=== PATIENT | male | born 1960 | race Caucasian/White ===

== ENCOUNTER 2018-06-04 19:57 | Inpatient (IN) ==
[2018-06-04 21:27] LABS: Baso % (Auto) 0.4 % (0.0-2.0); Eos # (Auto) 0.1 th/mm3 (0.0-0.4); Eos % (Auto) 1.3 % (0.0-4.0); Hematocrit 46.6 % (39.0-51.0); Hemoglobin 16.2 gm/dL (13.0-17.0); Lymph % (Auto) 18.9 % (9.0-44.0); Mean Corpuscular HGB Conc 34.8 % (32.0-36.0); Mean Corpuscular Volume 89.1 fL (80.0-100.0); Mean Platelet Volume 9.1 fL (7.0-11.0); Mono # (Auto) 0.8 th/mm3 (0.0-0.9); Mono % (Auto) 7.8 % (0.0-8.0); Neut # (Auto) 7.7 th/mm3 (1.8-7.7); Neut % (Auto) 71.6 % (16.0-70.0); Platelet Count 212 th/mm3 (150-450); Red Blood Count 5.23 mil/mm3 (4.50-5.90); Red Cell Distribution Width 12.3 % (11.6-17.2); White Blood Count 10.8 th/mm3 (4.0-11.0)
--- NOTE | 2018-06-04 21:29 | XR ---
EXAM DATE: 06/04/2018 8:54 PM EDT AGE/SEX: 58 years / Male INDICATIONS: Shortness of breath with chest pain. CLINICAL DATA: This is the patient's initial encounter. Patient reports that signs and symptoms have been present for 1 day and indicates a pain score of 5/10. MEDICAL/SURGICAL HISTORY: None. None. COMPARISON: No prior exams available for comparison. FINDINGS: Frontal view of the chest demonstrates moderate elevation of the left hemidiaphragm, approximately 5 cm higher than the contralateral side. The lungs are clear. No infiltrates seen. The heart is normal in size. CONCLUSION: No infiltrates seen. Elevated left hemidiaphragm. Electronically signed by: Vijay Olmos MD 06/04/2018 9:28 PM EDT
--- NOTE | 2018-06-04 21:41 | ED ---
HPI General Chief complaint: Shortness of Breath/Dyspnea Stated complaint: breathing, chest pain Time Seen by Provider: 06/04/18 20:31 Source: patient Mode of arrival: ambulatory Limitations: no limitations History of Present Illness HPI narrative: The patient is a 58 year old male who presents to the [facility] emergency department with a history of reportedly feeling unwell for the last 3 weeks. He reports that he has had body cramping in various locations during that period of time. He reports that he is also noticed swelling in the left lower extremity. The patient reports that today he began to have chest pain in the center of his chest that is a pressure sensation at approximately 7 AM this morning. He reports that it is worse with exertion. He also reports having shortness of breath and diaphoresis. He denies having any radiation of pain. He denies having any prior history of coronary artery disease. He reports a prior history of hypertension that is untreated, hyperlipidemia, and being prediabetic. He has not seen a primary care physician since 2013. He denies any prior history of DVT or PE, however is a family history of coagulopathy and was diagnosed with factor V Leiden deficiency. The patient reports a long-standing history of shortness of breath for years which he attributes to being a bone marrow donor in 2011. His primary care physician is Dr. Lanza. He cannot recall if he has ever had a stress test. Patient has a remote history of smoking, quitting 10 years ago. The patient reports having a dry cough over the last few weeks. He denies having any known fevers. He reports that today he has had some diarrhea. He reports that he has had 3 episodes. He denies having any blood in his stool or black or tarry stools. On review of systems otherwise, he denies any neck pain, abdominal pain, urinary symptoms, or neurologic symptoms. Related Data Home Medications Medication Instructions Recorded Confirmed No Known Home Medications 06/04/18 06/04/18 Allergies Allergy/AdvReac Type Severity Reaction Status Date / Time amoxicillin AdvReac Abdominal Verified 06/04/18 20:12 Pain codeine AdvReac Vomiting Verified 06/04/18 20:12 Review of Systems ROS: all other systems reviewed are negative [facility] Medical History Medical History Factor 5 Leiden mutation, heterozygous (Acute) Hyperlipidemia (Acute) Knee arthropathy (Acute) Prediabetes (Acute) HTN (hypertension) (Acute) Social History Social History Substance History: No History of Abuse Second Hand Smoke Exposure: No Smoking Status: Former smoker Tobacco Type: Cigars Smoking End Date: quit 10 years ago. How Often Do You Have a Drink Containing Alcohol: 2 to 3 times a week Recent Travel in [facility] within the Last 8 Weeks: No Recent Out of Country Travel within the Last 8 Weeks: No Immunization History Tetanus Immunization: Unsure Hx Influenza Vaccine This Season: No Exam Const General: cooperative, well developed and acute distress (Conversational dyspnea noted, O2 saturation on room air is 89 sent.) mild Nutritional Appearance: well nourished Orientation: alert, awake and oriented x3 HENMT Head: normocephalic and atraumatic Nose: no nasal discharge and no epistaxis Mouth: moist mucous membranes Throat: posterior oropharynx normal and uvula midline Eyes Sclera: normal sclerae Pupils: PERRL Neck Neck: no meningeal signs, trachea midline and no JVD Resp Effort & Inspection: no use of accessory muscles Auscultation: clear to auscultation bilaterally Cardio Rate: tachycardic (Sinus tachycardia in the low 100s. No pulse deficits to the extremities on simultaneous auscultation and palpation of his radial artery.) Rhythm: regular rhythm Heart Sounds: no gallops, no murmurs and no rubs GI Inspection: non-distended Palpation: soft, no hepatosplenomegaly and nontender Auscultation: normal bowel sounds Back/Spine/Pelvis Back: no CVA tenderness Skin General: dry skin (warm) Neuro General: alert, awake, oriented x3 and other (Grossly nonfocal.) Speech: speech normal Motor: no movement abnormalities noted Extrem General: normal to inspection (2+ pulses in all 4 extremities.), no clubbing, no cyanosis and edema (Some swelling in the left calf is noted. The patient has left calf tenderness on palpation. No erythema or ecchymosis. The patient has full range of motion of the ankle with flexion and extension on the left.) Psych Mood: congruent mood Affect: normal affect Judgment: judgment good Course Reevaluation(s) Reevaluation #1: The patient continued to have dyspnea and was placed on 2 L nasal cannula O2 initially. This was bumped up to 4 L. The patient reported feeling improved. Consultations Consultation #1: The tool grinding technician was called regarding a stat echo. She agreed to come in to do this emergently. The patient's case including history, pertinent physical examination findings, and laboratory studies were discussed with Dr. Brian Nassar. It was agreed that he would read a stat 2D echo. Consultation #2: The patient's case including history, pertinent physical examination findings, and laboratory studies were discussed with Dr. Christopher. It was agreed that the patient would be admitted to the hide inspector and sorter's service. Initial Documented Vital Signs Temperature 99.8 F H 06/04/18 20:12 Pulse Rate 117 H 06/04/18 20:12 Respiratory Rate 23 06/04/18 20:12 Blood Pressure 169/94 H 06/04/18 20:12 Pulse Oximetry 92 L 06/04/18 20:12 Last Documented Vital Signs Temperature 98.3 F 06/05/18 04:00 Pulse Rate 96 H 06/05/18 06:00 Respiratory Rate 30 H 06/05/18 06:00 Blood Pressure 139/81 06/05/18 06:00 Pulse Oximetry 95 06/05/18 06:00 Critical Care Time Critical Care Time: Yes Total Critical Care Time: 39 Attestation: Aggregate critical care time was 39 minutes. Time to perform other separately billable procedures was not included in the critical care time. My time did not include minutes spent treating any other patients simultaneously or on activities that did not directly contribute to the patient's treatment. The services I provided to this patient were to treat and/or prevent clinically significant deterioration that could result in: Respiratory failure, versus cardiovascular collapse I provided critical care services requiring my management, as noted below: Chart data review, documentation time, medication orders and management, vital sign assessments/reviewing monitor data, ordering and reviewing lab tests, ordering and interpreting/reviewing x-rays and diagnostic studies, care of the patient and discussion of the patient with the admitting physicians. Medical Decision Making MDM Narrative Medical decision making narrative: During the course of the patient's emergency department visit, the patient's history, examination, and differential diagnosis were reviewed with the patient. The patient was placed on a cardiac technician with oximetry and frequent blood pressure monitoring. The patient had IV access obtained and blood work sent for analysis. Diagnostic evaluation was started regarding the patient's chest pain, shortness of breath, lower extremity edema on the left leg with cramping. The patient was initially provided nitroglycerin sublingual every 5 minutes x3 as needed chest pain. The patient reports that earlier this morning he did take 2 adult aspirin. The patient's ultrasound was read as having extensive DVT in the left lower extremity, heparin as a bolus and a drip was started. CTA revealed bilateral pulmonary embolisms. I am concerned that there is some evidence of right heart strain on the initial EKG that was done which showed an incomplete right bundle branch block. The patient also has an elevated troponin consistent with right heart strain. A call was placed out to the tool grinding technician for stat echo to confirm right heart strain as TPA would be indicated if this is the case. The patient's results were discussed with the patient, including the plan of care. I explained that further testing and/ or monitoring is indicated based on the patient's history, examination, and/ or laboratory findings. Therefore, I recommended admission for additional evaluation. The patient expressed understanding and was agreeable with this plan. The patient was admitted to the hospital in guarded condition and sent to a bed under the care of the hide inspector and sorter's. Medical Screen Exam Complete: Yes Emergency Medical Condition: Yes Differential Diagnosis Differential Diagnosis: DVT, versus PE, versus coronary artery disease, versus DKA, versus congestive heart failure, versus hypertensive urgency, versus hypertensive emergency Medical Records Medical records reviewed: Yes I reviewed the patient's medical records. Lab Data Lab results reviewed: Yes I reviewed the patient's lab results. Result diagrams: 06/05/18 03:10 06/04/18 21:00 Lab Results 06/04/18 06/04/18 06/04/18 Range/Units 21:00 21:00 21:00 WBC 10.8 (4.0-11.0) th/mm3 RBC 5.23 (4.50-5.90) mil/mm3 Hgb 16.2 (13.0-17.0) gm/dL Hct 46.6 (39.0-51.0) % MCV 89.1 (80.0-100.0) fL MCH 31.0 (27.0-34.0) pg MCHC 34.8 (32.0-36.0) % RDW 12.3 (11.6-17.2) % Plt Count 212 (150-450) th/mm3 MPV 9.1 (7.0-11.0) fL Neut % (Auto) 71.6 H (16.0-70.0) % Lymph % (Auto) 18.9 (9.0-44.0) % [place] % (Auto) 7.8 (0.0-8.0) % Eos % (Auto) 1.3 (0.0-4.0) % Baso % (Auto) 0.4 (0.0-2.0) % Neut # (Auto) 7.7 (1.8-7.7) th/mm3 Lymph # (Auto) 2.0 (1.0-4.8) th/mm3 [place] # (Auto) 0.8 (0.0-0.9) th/mm3 Eos # (Auto) 0.1 (0.0-0.4) th/mm3 Baso # (Auto) 0.0 (0.0-0.2) th/mm3 WBC Differential . Differential Comment Auto diff final PT (9.8-11.6) sec INR Ratio APTT (24.3-30.1) sec Sodium 133 L (136-145) meq/L Potassium 4.8 (3.5-5.1) meq/L Chloride 100 (98-107) meq/L Carbon Dioxide 22.5 (21.0-32.0) meq/L Anion Gap 11 (5-15) meq/L BUN 11 (7-18) mg/dL Creatinine 1.19 (0.60-1.30) mg/dL Estimated GFR 63 L (>89) mL/min Random Glucose 246 H (74-106) mg/dL Calcium 8.9 (8.5-10.1) mg/dL Magnesium (1.5-2.5) mg/dL Total Bilirubin 1.0 (0.2-1.0) mg/dL AST 91 H (15-37) U/L ALT 127 H (12-78) U/L Alkaline Phosphatase 136 H (45-117) U/L Total Creatine Kinase (39-308) U/L CK-MB (CK-2) (0.5-3.6) ng/mL Troponin I 0.14 H (0.02-0.05) ng/mL B-Natriuretic Peptide 104 H (0-100) pg/mL Total Protein 8.0 (6.4-8.2) g/dL Albumin 3.9 (3.4-5.0) g/dL Lipase 86 (73-393) U/L Urine Color (Yellw/Straw) Urine Clarity (Clear) Urine pH (5.0-8.5) Ur Specific Erwin (1.002-1.035) Urine Protein (Neg-Trace) mg/dL Urine Glucose (UA) (Negative) mg/dL Urine Ketones (Negative) mg/dL Urine Occult Blood (Negative) Urine Nitrate (Negative) Urine Bilirubin (Negative) Urine Urobilinogen (Less than 2) mg/dL Ur Leukocyte Esterase (Negative) Urine RBC (0-3) /hpf Urine WBC (0-5) /hpf Hyaline Casts (0-3) /lpf Micro UA Comment Ur Microscopic Review Urine Culture Comments Nasal Screen MRSA (PCR) (Negative) Urine Opiates Screen (Neg) Ur Barbiturates Screen (Neg) Ur Amphetamines Screen (Neg) U Benzodiazepines Scrn (Neg) Urine Cocaine Screen (Neg) U Cannabinoids Screen (Neg) Hepatitis A IgM Ab (Nonreactive) Hep Bs Antigen (Nonreactive) Hep B Core IgM Ab (Nonreactive) Hep C IgG Ab (Nonreactive) 06/04/18 06/04/18 06/05/18 Range/Units 21:00 21:00 01:54 WBC (4.0-11.0) th/mm3 RBC (4.50-5.90) mil/mm3 Hgb (13.0-17.0) gm/dL Hct (39.0-51.0) % MCV (80.0-100.0) fL MCH (27.0-34.0) pg MCHC (32.0-36.0) % RDW (11.6-17.2) % Plt Count (150-450) th/mm3 MPV (7.0-11.0) fL Neut % (Auto) (16.0-70.0) % Lymph % (Auto) (9.0-44.0) % [place] % (Auto) (0.0-8.0) % Eos % (Auto) (0.0-4.0) % Baso % (Auto) (0.0-2.0) % Neut # (Auto) (1.8-7.7) th/mm3 Lymph # (Auto) (1.0-4.8) th/mm3 [place] # (Auto) (0.0-0.9) th/mm3 Eos # (Auto) (0.0-0.4) th/mm3 Baso # (Auto) (0.0-0.2) th/mm3 WBC Differential Differential Comment PT 11.6 (9.8-11.6) sec INR 1.1 Ratio APTT 29.6 (24.3-30.1) sec Sodium (136-145) meq/L Potassium (3.5-5.1) meq/L Chloride (98-107) meq/L Carbon Dioxide (21.0-32.0) meq/L Anion Gap (5-15) meq/L BUN (7-18) mg/dL Creatinine (0.60-1.30) mg/dL Estimated GFR (>89) mL/min Random Glucose (74-106) mg/dL Calcium (8.5-10.1) mg/dL Magnesium 1.8 (1.5-2.5) mg/dL Total Bilirubin (0.2-1.0) mg/dL AST (15-37) U/L ALT (12-78) U/L Alkaline Phosphatase (45-117) U/L Total Creatine Kinase 171 (39-308) U/L CK-MB (CK-2) 2.6 (0.5-3.6) ng/mL Troponin I (0.02-0.05) ng/mL B-Natriuretic Peptide (0-100) pg/mL Total Protein (6.4-8.2) g/dL Albumin (3.4-5.0) g/dL Lipase (73-393) U/L Urine Color (Yellw/Straw) Urine Clarity (Clear) Urine pH (5.0-8.5) Ur Specific Erwin (1.002-1.035) Urine Protein (Neg-Trace) mg/dL Urine Glucose (UA) (Negative) mg/dL Urine Ketones (Negative) mg/dL Urine Occult Blood (Negative) Urine Nitrate (Negative) Urine Bilirubin (Negative) Urine Urobilinogen (Less than 2) mg/dL Ur Leukocyte Esterase (Negative) Urine RBC (0-3) /hpf Urine WBC (0-5) /hpf Hyaline Casts (0-3) /lpf Micro UA Comment Ur Microscopic Review Urine Culture Comments Nasal Screen MRSA (PCR) Not detected (Negative) Urine Opiates Screen (Neg) Ur Barbiturates Screen (Neg) Ur Amphetamines Screen (Neg) U Benzodiazepines Scrn (Neg) Urine Cocaine Screen (Neg) U Cannabinoids Screen (Neg) Hepatitis A IgM Ab (Nonreactive) Hep Bs Antigen (Nonreactive) Hep B Core IgM Ab (Nonreactive) Hep C IgG Ab (Nonreactive) 06/05/18 06/05/18 06/05/18 Range/Units 03:10 03:10 03:10 WBC 10.2 (4.0-11.0) th/mm3 RBC 4.92 (4.50-5.90) mil/mm3 Hgb 15.0 (13.0-17.0) gm/dL Hct 44.3 (39.0-51.0) % MCV 90.1 (80.0-100.0) fL MCH 30.4 (27.0-34.0) pg MCHC 33.8 (32.0-36.0) % RDW 12.4 (11.6-17.2) % Plt Count 213 (150-450) th/mm3 MPV 8.8 (7.0-11.0) fL Neut % (Auto) (16.0-70.0) % Lymph % (Auto) (9.0-44.0) % [place] % (Auto) (0.0-8.0) % Eos % (Auto) (0.0-4.0) % Baso % (Auto) (0.0-2.0) % Neut # (Auto) (1.8-7.7) th/mm3 Lymph # (Auto) (1.0-4.8) th/mm3 [place] # (Auto) (0.0-0.9) th/mm3 Eos # (Auto) (0.0-0.4) th/mm3 Baso # (Auto) (0.0-0.2) th/mm3 WBC Differential Differential Comment PT (9.8-11.6) sec INR Ratio APTT (24.3-30.1) sec Sodium (136-145) meq/L Potassium (3.5-5.1) meq/L Chloride (98-107) meq/L Carbon Dioxide (21.0-32.0) meq/L Anion Gap (5-15) meq/L BUN (7-18) mg/dL Creatinine (0.60-1.30) mg/dL Estimated GFR (>89) mL/min Random Glucose (74-106) mg/dL Calcium (8.5-10.1) mg/dL Magnesium (1.5-2.5) mg/dL Total Bilirubin (0.2-1.0) mg/dL AST (15-37) U/L ALT (12-78) U/L Alkaline Phosphatase (45-117) U/L Total Creatine Kinase (39-308) U/L CK-MB (CK-2) (0.5-3.6) ng/mL Troponin I (0.02-0.05) ng/mL B-Natriuretic Peptide (0-100) pg/mL Total Protein (6.4-8.2) g/dL Albumin (3.4-5.0) g/dL Lipase (73-393) U/L Urine Color Yellow (Yellw/Straw) Urine Clarity Clear (Clear) Urine pH 6.0 (5.0-8.5) Ur Specific Erwin 1.041 H (1.002-1.035) Urine Protein Negative (Neg-Trace) mg/dL Urine Glucose (UA) 500 or greater (Negative) mg/dL Urine Ketones 20 (Negative) mg/dL Urine Occult Blood Small H (Negative) Urine Nitrate Negative (Negative) Urine Bilirubin Negative (Negative) Urine Urobilinogen Less than 2 (Less than 2) mg/dL Ur Leukocyte Esterase Negative (Negative) Urine RBC 1 (0-3) /hpf Urine WBC 1 (0-5) /hpf Hyaline Casts 3 (0-3) /lpf Micro UA Comment Culture not ind Ur Microscopic Review Not Reportable Urine Culture Comments Culture not ind Nasal Screen MRSA (PCR) (Negative) Urine Opiates Screen Neg (Neg) Ur Barbiturates Screen Neg (Neg) Ur Amphetamines Screen Neg (Neg) U Benzodiazepines Scrn Neg (Neg) Urine Cocaine Screen Neg (Neg) U Cannabinoids Screen Neg (Neg) Hepatitis A IgM Ab (Nonreactive) Hep Bs Antigen (Nonreactive) Hep B Core IgM Ab (Nonreactive) Hep C IgG Ab (Nonreactive) 06/05/18 06/05/18 Range/Units 03:10 03:10 WBC (4.0-11.0) th/mm3 RBC (4.50-5.90) mil/mm3 Hgb (13.0-17.0) gm/dL Hct (39.0-51.0) % MCV (80.0-100.0) fL MCH (27.0-34.0) pg MCHC (32.0-36.0) % RDW (11.6-17.2) % Plt Count (150-450) th/mm3 MPV (7.0-11.0) fL Neut % (Auto) (16.0-70.0) % Lymph % (Auto) (9.0-44.0) % [place] % (Auto) (0.0-8.0) % Eos % (Auto) (0.0-4.0) % Baso % (Auto) (0.0-2.0) % Neut # (Auto) (1.8-7.7) th/mm3 Lymph # (Auto) (1.0-4.8) th/mm3 [place] # (Auto) (0.0-0.9) th/mm3 Eos # (Auto) (0.0-0.4) th/mm3 Baso # (Auto) (0.0-0.2) th/mm3 WBC Differential Differential Comment PT (9.8-11.6) sec INR Ratio APTT 54.6 H D (24.3-30.1) sec Sodium (136-145) meq/L Potassium (3.5-5.1) meq/L Chloride (98-107) meq/L Carbon Dioxide (21.0-32.0) meq/L Anion Gap (5-15) meq/L BUN (7-18) mg/dL Creatinine (0.60-1.30) mg/dL Estimated GFR (>89) mL/min Random Glucose (74-106) mg/dL Calcium (8.5-10.1) mg/dL Magnesium (1.5-2.5) mg/dL Total Bilirubin (0.2-1.0) mg/dL AST (15-37) U/L ALT (12-78) U/L Alkaline Phosphatase (45-117) U/L Total Creatine Kinase (39-308) U/L CK-MB (CK-2) (0.5-3.6) ng/mL Troponin I (0.02-0.05) ng/mL B-Natriuretic Peptide (0-100) pg/mL Total Protein (6.4-8.2) g/dL Albumin (3.4-5.0) g/dL Lipase (73-393) U/L Urine Color (Yellw/Straw) Urine Clarity (Clear) Urine pH (5.0-8.5) Ur Specific Erwin (1.002-1.035) Urine Protein (Neg-Trace) mg/dL Urine Glucose (UA) (Negative) mg/dL Urine Ketones (Negative) mg/dL Urine Occult Blood (Negative) Urine Nitrate (Negative) Urine Bilirubin (Negative) Urine Urobilinogen (Less than 2) mg/dL Ur Leukocyte Esterase (Negative) Urine RBC (0-3) /hpf Urine WBC (0-5) /hpf Hyaline Casts (0-3) /lpf Micro UA Comment Ur Microscopic Review Urine Culture Comments Nasal Screen MRSA (PCR) (Negative) Urine Opiates Screen (Neg) Ur Barbiturates Screen (Neg) Ur Amphetamines Screen (Neg) U Benzodiazepines Scrn (Neg) Urine Cocaine Screen (Neg) U Cannabinoids Screen (Neg) Hepatitis A IgM Ab Nonreactive (Nonreactive) Hep Bs Antigen Nonreactive (Nonreactive) Hep B Core IgM Ab Nonreactive (Nonreactive) Hep C IgG Ab Nonreactive (Nonreactive) Imaging Data Radiologist's impression: Chest CTA 06/04/18 20:54 CONCLUSION: 1. Large bilateral pulmonary emboli. 2. 4 mm nodular density in the left upper lobe. Consider 12 month follow-up noncontrast chest CT. Chest X-Ray 06/04/18 20:54 CONCLUSION: No infiltrates seen. Elevated left hemidiaphragm. Venous Doppler Study 06/04/18 20:54 CONCLUSION: 1. Occlusive thrombus in the left lower extremity deep venous system from mid thigh to popliteal region. 2. No evidence of deep venous thrombosis in the right lower extremity. Head CT 06/05/18 02:19 CONCLUSION: No acute intracranial findings. . ECG Data Attestation: I personally reviewed and interpreted this ECG as follows: Interpretation: The patient had an EKG done on arrival. The patient's EKG reveals a sinus tachycardia rate of 112, QRS duration is 93 ms, QTC is 411 ms. T waves are inverted in lead III, no acute ST segment elevation. Discharge Plan Discharge Disposition Patient Disposition: 30 Still Patient Discharge Details Diagnosis: Bilateral pulmonary embolism, DVT (deep venous thrombosis) Physicians Team ED Provider: Miryam Nassar Primary Care Provider: Primary Care Rand Antonio Attending Provider: Savanah Christopher Other Providers: Jax Gordon Discharge Interventions Interventions: ED Discharge Assessment Last Done: 06/05/18 00:06 Status ED Status: Left Department Discharge Information Discharge Date/Time: 06/05/18 01:10
[2018-06-04 21:43] LABS: Activated Partial Thrombo Time 29.6 sec (24.3-30.1); INR 1.1 Ratio; Prothrombin Time 11.6 sec (9.8-11.6)
[2018-06-04 21:52] LABS: Albumin 3.9 g/dL (3.4-5.0); Anion Gap 11 meq/L (5-15); Aspartate Aminotransferase 91 U/L (15-37); Blood Urea Nitrogen 11 mg/dL (7-18); Calcium 8.9 mg/dL (8.5-10.1); Carbon Dioxide 22.5 meq/L (21.0-32.0); Chloride 100 meq/L (98-107); Glomerular Filtration Rate 63 mL/min (>89); Glucose,Random 246 mg/dL (74-106); Lipase 86 U/L (73-393); Potassium 4.8 meq/L (3.5-5.1); Sodium 133 meq/L (136-145)
[2018-06-04 21:53] LABS: Alanine Aminotransferase 127 U/L (12-78)
[2018-06-04 21:54] LABS: Magnesium 1.8 mg/dL (1.5-2.5)
[2018-06-04 21:56] LABS: Creatine Kinase 171 U/L (39-308)
[2018-06-04] MEDS ORDERED: Heparin 10,000 UNITS/10 ML Vial (for IV use) IV.PUSH STA (21:58)
[2018-06-04 22:07] LABS: Alkaline Phosphatase 136 U/L (45-117); Troponin I 0.14 ng/mL (0.02-0.05)
--- NOTE | 2018-06-04 22:18 | US ---
EXAM DATE: 06/04/2018 8:54 PM EDT AGE/SEX: 58 years / Male INDICATIONS: Bilateral leg swelling. CLINICAL DATA: This is the patient's initial encounter. Patient reports that signs and symptoms have been present for 1 month and indicates a pain score of 4/10. MEDICAL/SURGICAL HISTORY: Hypertension. . Knee arthoplasty. COMPARISON: No prior exams available for comparison. TECHNIQUE: Venous ultrasound of both lower extremities was performed from the inguinal ligament to t he proximal calf. Real-time, color Doppler and spectral tracing, compression and augmentation techni ques were used. FINDINGS: Right Leg: Normal compression of the deep venous system from the inguinal region to the proximal reji f. No echogenic clot is seen. Normal response of the venous system to augmentation and respiration. Left Leg: Abnormal. The femoral vein and popliteal vein are noncompressible and there is echogenic t hrombus within the lumen. There is no augmentation to distal compression. Absent flow seen by color D oppler in the mid and distal superficial femoral vein and popliteal vein. Other: None. CONCLUSION: 1. Occlusive thrombus in the left lower extremity deep venous system from mid thigh to popliteal reg ion. 2. No evidence of deep venous thrombosis in the right lower extremity. Electronically signed by: Vijay Olmos MD 06/04/2018 10:16 PM EDT
[2018-06-04] MEDS: Heparin Drip 25,000 UNIT/250 ML BAG IV.CONT PRN (22:24)
--- NOTE | 2018-06-04 22:24 | ECG ---
Date Performed: 06/04/2018 Time Performed: 20:04:43 PTAGE: 58 years EKG: SINUS TACHYCARDIA LOW QRS VOLTAGE IN PRECORDIAL LEADS INCOMPLETE RIGHT BUNDLE BRANCH BLOCK ABNORMAL RHYTHM ECG PREVIOUS TRACING : 08/18/1999 16.43 Compared to previous tracing, rate faster DOCTOR: Ashok Almendarez Interpretating Date/Time 06/04/2018 22:23:32
--- NOTE | 2018-06-04 23:07 | CT ---
EXAM DATE: 06/04/2018 9:12 PM EDT AGE/SEX: 58 years / Male INDICATIONS: Shortness of breath. CLINICAL DATA: This is the patient's initial encounter. Patient reports that signs and symptoms have been present for 3 weeks and indicates a pain score of 3/10. MEDICAL/SURGICAL HISTORY: Hypertension. None. RADIATION DOSE: 23.11 CTDI (mGy) COMPARISON: No prior exams available for comparison. TECHNIQUE: Volumetric scanning was performed using a multi-row detector CT scanner during bolus infu summer of 75 ml Omnipaque 350 (iohexol) nonionic water-soluble contrast as a single exam dose. The daisy a was post processed with a variety of visualization algorithms including full volume maximum intensi ty projection and sliding thin slab reformation. Using automated exposure control and adjustment of the mA and/or kV according to patient size, radiation dose was kept as low as reasonably achievable t o obtain optimal diagnostic quality images. DICOM format image data is available electronically for review and comparison. FINDINGS: Large filling defects in the main right and left pulmonary arteries centrally along with multiple blanca ling defects in the segmental branches of the right and left pulmonary arteries. Findings indicate ex tensive pulmonary emboli. 4 mm nodular density anterior left upper lobe on image #26. Several clustered nodular densities in th e left upper lobe on image #44 that are likely inflammatory in etiology. Mild atelectasis at the lung bases. No enlarged lymph nodes. Axillary regions within normal limits. Thoracic aorta diameter within normal limits. Coronary artery calcification noted. Hepatic steatosis noted. CONCLUSION: 1. Large bilateral pulmonary emboli. 2. 4 mm nodular density in the left upper lobe. Consider 12 month follow-up noncontrast chest CT. Electronically signed by: Hunter Kay MD 06/04/2018 11:06 PM EDT
[2018-06-04 23:45] LABS: Creatine Kinase MB 2.6 ng/mL (0.5-3.6)
[2018-06-05] MEDS ORDERED: Acetaminophen 325 MG Tablet PO PRN (00:12)
[2018-06-05] MEDS ORDERED: Bisacodyl 10 MG Supp RECTAL PRN (00:12)
--- NOTE | 2018-06-05 00:22 | P.HPCC ---
History of Present Illness Service: Critical care medicine Primary Care Physician: No Primary Care Physician Chief Complaint: Bilateral pulmonary emboli History of Present Illness: 58-year-old male who states that he has factor V Leiden deficiency, hypertension, prior tobacco abuse, hyperlipidemia, borderline diabetes presented to [facility] emergency department with acute onset of chest pain with workup revealing bilateral pulmonary embolism. He states that about 3 weeks ago he developed left leg pain and swelling which he attributed to a workout he had done at the gym. He has had intermittent dyspnea on exertion for about 2 days. At 7 am 06/04 he was riding in a van with his brother and developed sudden onset severe chest pain. He got out of the vehicle and walked into work (with difficulty) but was experiencing severe dyspnea. He felt presyncopal, diaphoretic and states he "looked in the mirror and appeared mayes" . He lowered himself into a chair and did not have syncope or head trauma. Workup in the ED included CTA chest which demonstrated bilateral pulmonary emboli including significant clot burden in the main pulmonary arteries as well as distal subsegments. Ultrasound demonstrated left femoral DVT extending to popliteal. He was normotensive but is tachycardic up to 120 with sinus rhythm. Troponin is elevated at 0.14 and BNP is also mildly elevated. Patient has received heparin bolus and was started on heparin drip. Critical care medicine was consulted and stat echo was ordered which demonstrated moderate RV dysfunction and mild dilatation. Patient denies prior issues with bleeding. He has never had a stroke or intracerebral hemorrhage, no recent surgery or trauma, intracerebral or intraspinous injuries. He has experienced posterior headache today. Obtain CT brain which was negative. No apparent comp or indication to TPA. After extensive discussion of risk and benefits with patient will proceed with TPA 50 mg over 2 hours for submassive PE. No known prior history of cancer. He has never had a colonoscopy and says that he stopped going to his primary care physician about 4 years ago. He has recently been working out more in an effort to improve his health. 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 He is sedentary at his job. He did travel by car to [place] and to [place] in mid to late March. He states he was previously tested positive for factor V Leiden mutation but has no prior history of venous thromboembolism and has not been on anticoagulation. 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 Quality of life including ability to maintain these activities is very important to him and therefore this influences his decision to proceed with TPA due to potential for reduced hospital stay, lower risk of recurrence, decreased pulmonary hypertension. He is aware of increased risk of bleeding which could include intracerebral hemorrhage. - Diagnosis (1) Bilateral pulmonary embolism (2) DVT (deep venous thrombosis) (3) Obesity (BMI 30.0-34.9) (4) Headache (5) RVF (right ventricular failure) (6) V-tach (7) HLD (hyperlipidemia) (8) HTN (hypertension) Inpatient Certification: I certify that the inpatient services were ordered in accordance with Medicare regulations governing the order. This includes certification that hospital inpatient services are reasonable and necessary and in the case of services not specified as inpatient-only under 42 CFR 419.22(n), that they are appropriately provided as inpatient services in accordance to with the 2-midnight benchmark under 43 CFR 412.3(e) Estimated Total Length of Stay (Days): 5 Plans for Post Hospital Care: Not yet determined Review of Systems All other systems reviewed negative except as stated in HPI PMFSH - History History Provided By: Patient - Medical History Medical History: Medical History (Last Reviewed 06/05/18 @ 13:05 by Savanah Christopher MD) Factor 5 Leiden mutation, heterozygous Hyperlipidemia Knee arthropathy Prediabetes HTN (hypertension) - Surgical History Surgical History: Surgical History (Last Updated 06/05/18 @ 12:48 by Savanah Christopher MD) History of arthroplasty of both knees - Family History Family History: Family History (Last Updated 06/05/18 @ 12:50 by Savanah Christopher MD) Father CAD (coronary artery disease) Mother Adopted Sister Factor V Leiden - Social History I have reviewed the patient's Social History: Yes - Tobacco History Second Hand Smoke Exposure: No Smoking Status: Former smoker Tobacco Type: Cigars Years Smoked: 9 Smoking End Date: quit age 47 - Alcohol History How Often Do You Have a Drink Containing Alcohol: 2 to 3 times a week - Substance Use History Substance History: No History of Abuse - Travel History Recent Travel in the [place] Within the Last 8 Weeks: No Recent Travel Out of the Country Within the Last 8 Weeks: No - Immunization History Tetanus Immunization: Unsure Hx Influenza Vaccine This Season: No Medications and Allergies Active Medications: Active Medications Acetaminophen (Tylenol) 650 mg PO Q6H PRN PRN Reason: PAIN 1-10 AND/OR FEVER >101F Al Hydroxide/Mg Hydroxide (Milk Of Magnesia Liq) 30 ml PO Q12H PRN PRN Reason: Mild Constipation Albuterol (Albuterol Neb (Prn)) 2.5 mg NEB Q2HR NEB PRN PRN Reason: SHORTNESS OF BREATH/WHEEZING Bisacodyl (Dulcolax Supp) 10 mg RECTAL DAILY PRN PRN Reason: SEVERE CONSITIPATION Chlorhexidine Gluconate (Chlorhexidine 2% Cloth) 3 pack TOPICAL DAILY@0400 ONEL Stop: 06/10/18 03:59 Chlorhexidine Gluconate (Chlorhexidine 2% Cloth) 3 pack TOPICAL DAILY@0400 PRN PRN Reason: Extra cloth needed Stop: 06/10/18 03:59 Heparin Sodium/Dextrose (Heparin/D5w 25,000 U/250 Ml) 25,000 unit in 250 mls @ 0 mls/hr IV.CONT TITRATE PRN; Protocol PRN Reason: Per Protocol Last Admin: 06/04/18 22:24 Dose: 1,800 units/hr, 18 mls/hr Lactulose (Lactulose Liq) 30 ml PO DAILY PRN PRN Reason: SEVERE CONSITIPATION Ondansetron HCl (Zofran Inj) 4 mg IV.PUSH Q6H PRN PRN Reason: NAUSEA OR VOMITING Pantoprazole Sodium (Protonix) 40 mg PO DAILY [facility] Senna/Docusate Sodium (Cyndee-Colace) 1 tab PO BID [facility] Sennosides (Senokot) 17.2 mg PO Q12H PRN PRN Reason: Moderate Constipation Sodium Chloride (Ns Flush) 2 ml IV.FLUSH UNSCH PRN PRN Reason: FLUSH AFTER USING IV ACCESS Sodium Chloride (Ns Flush) 2 ml IV.FLUSH BID ONEL Sodium Chloride (Ns Flush) 2 ml IV.FLUSH PRN PRN PRN Reason: FLUSH AFTER USING IV ACCESS Allergies Allergy/AdvReac Type Severity Reaction Status Date / Time amoxicillin AdvReac Abdominal Verified 06/04/18 20:12 Pain codeine AdvReac Vomiting Verified 06/04/18 20:12 Home Medications Medication Instructions Recorded Confirmed Type No Known Home Medications 06/04/18 06/04/18 History Results - Labs CBC & Chem 7: 06/05/18 03:10 06/04/18 21:00 Labs: Short CBC 06/04/18 Range/Units 21:00 WBC 10.8 (4.0-11.0) th/mm3 Hgb 16.2 (13.0-17.0) gm/dL Hct 46.6 (39.0-51.0) % Plt Count 212 (150-450) th/mm3 BMP 06/04/18 21:00 Sodium 133 L Potassium 4.8 Chloride 100 Carbon Dioxide 22.5 BUN 11 Creatinine 1.19 Calcium 8.9 Cardiac Enzymes 06/04/18 06/04/18 Range/Units 21:00 21:00 Total Creatine Kinase 171 (39-308) U/L CK-MB (CK-2) 2.6 (0.5-3.6) ng/mL Troponin I 0.14 H (0.02-0.05) ng/mL Liver Function 06/04/18 Range/Units 21:00 Total Bilirubin 1.0 (0.2-1.0) mg/dL AST 91 H (15-37) U/L ALT 127 H (12-78) U/L Alkaline Phosphatase 136 H (45-117) U/L Albumin 3.9 (3.4-5.0) g/dL - Imaging Impressions Chest CTA 06/04/18 20:54 CONCLUSION: 1. Large bilateral pulmonary emboli. 2. 4 mm nodular density in the left upper lobe. Consider 12 month follow-up noncontrast chest CT. Chest X-Ray 06/04/18 20:54 CONCLUSION: No infiltrates seen. Elevated left hemidiaphragm. Venous Doppler Study 06/04/18 20:54 CONCLUSION: 1. Occlusive thrombus in the left lower extremity deep venous system from mid thigh to popliteal region. 2. No evidence of deep venous thrombosis in the right lower extremity. Exam Vital signs: Vital Signs 06/04/18 20:12 06/04/18 20:34 06/04/18 21:05 Temperature 99.8 F H Pulse Rate 117 H 114 H 112 H Respiratory Rate 23 24 24 Blood Pressure 169/94 H 170/94 H 170/94 H Pulse Oximetry 92 L 90 L 94 L 06/04/18 21:35 06/04/18 23:00 06/04/18 23:20 Temperature Pulse Rate 115 H 116 H 111 H Respiratory Rate 20 Blood Pressure 131/83 124/75 Pulse Oximetry 92 L 90 L 93 L Intake & Output 06/04/18 06/04/18 06/05/18 06:59 18:59 06:59 Weight 107.501 kg Narrative: GENERAL: Alert very pleasant and talkative male, overweight. SKIN: Warm and dry. HEAD: Atraumatic. Normocephalic. EYES: Pupils equal and round. No scleral icterus. No injection or drainage. ENT: No nasal bleeding or discharge. Mucous membranes pink and moist. NECK: Trachea midline. No JVD. CARDIOVASCULAR: Tachycardic, regular, sinus tach on the monitor with a rate of 118. No murmurs rubs or gallops. RESPIRATORY: No accessory muscle use. Clear to auscultation. Breath sounds equal bilaterally. On nasal cannula GASTROINTESTINAL: Abdomen soft, non-tender, nondistended. MUSCULOSKELETAL: Extremities without clubbing, cyanosis. +LLE swelling. Compartments soft. NEUROLOGICAL: Awake and alert. No obvious cranial nerve deficits. Motor grossly within normal limits. Five out of 5 muscle strength in the arms and legs. Normal speech. Caprini VTE Risk Assessment Caprini VTE Risk Assessment: Moderate/High Risk (score >= 2) Caprini Risk Assessment Model: Point Value = 1 Point Value = 2 Point Value = 3 Point Value = 5 Age 41-60 Minor surgery BMI > 25 kg/m2 Swollen legs Varicose veins or History of unexplained or recurrent spontaneous Oral contraceptives or hormone replacement Sepsis (< 1 month) Serious lung disease, including pneumonia (< 1 month) Abnormal pulmonary function Acute myocardial infarction Congestive heart failure (< 1 month) History of inflammatory bowel disease Medical patient at bed rest Age 61-74 Arthroscopic surgery Major open surgery (> 45 min) Laparoscopic surgery (> 45 min) Malignancy Confined to bed (> 72 hours) Immobilizing plaster cast Central venous access Age >= 75 History of VTE Family history of VTE Factor V Leiden Prothrombin [id number] Lupus anticoagulant Anticardiolipin antibodies Elevated serum homocysteine Heparin-induced thrombocytopenia Other congenital or acquired thrombophilia Stroke (< 1 month) Elective arthroplasty Hip, pelvis, or leg fracture Acute spinal cord injury (< 1 month) Prophylaxis Regimen: Total Risk Factor Score Risk Level Prophylaxis Regimen 0-1 Low Early ambulation 2 Moderate Order ONE of the following: *Sequential Compression Device (SCD) *Heparin 5000 units SQ BID 3-4 Higher Order ONE of the following medications: *Heparin 5000 units SQ TID *Enoxaparin/Lovenox 40 mg SQ daily (WT < 150 kg, CrCl > 30 mL/min) *Enoxaparin/Lovenox 30 mg SQ daily (WT < 150 kg, CrCl > 10-29 mL/min) *Enoxaparin/Lovenox 30 mg SQ BID (WT < 150 kg, CrCl > 30 mL/min) AND/OR *Sequential Compression Device (SCD) 5 or more Highest Order ONE of the following medications: *Heparin 5000 units SQ TID (Preferred with Epidurals) *Enoxaparin/Lovenox 40 mg SQ daily (WT < 150 kg, CrCl > 30 mL/min) *Enoxaparin/Lovenox 30 mg SQ daily (WT < 150 kg, CrCl > 10-29 mL/min) *Enoxaparin/Lovenox 30 mg SQ BID (WT < 150 kg, CrCl > 30 mL/min) AND *Sequential Compression Device (SCD) Assessment and Plan - Problem List (1) Bilateral pulmonary embolism Code(s): I26.99 - Other pulmonary embolism without acute cor pulmonale Status : Acute (2) DVT (deep venous thrombosis) Code(s): I82.409 - Acute embolism and thrombosis of unspecified deep veins of unspecified lower extremity Status: Acute (3) Obesity (BMI 30.0-34.9) Code(s): E66.9 - Obesity, unspecified Status: Chronic (4) Headache Code(s): R51 - Headache Status: Resolved (5) RVF (right ventricular failure) Code(s): I50.9 - Heart failure, unspecified Status: Acute (6) V-tach Code(s): I47.2 - Ventricular tachycardia Status: Acute (7) HLD (hyperlipidemia) Code(s): E78.5 - Hyperlipidemia, unspecified Status: Chronic (8) HTN (hypertension) Code(s): I10 - Essential (primary) hypertension Status: Chronic - Assessment and Plan Plan: NEURO: Headache, resolved CT brain negative No head trauma, neuro intact RESP/CV/HEME: Submassive bilateral pulmonary emboli Dyspnea Essential hypertension Hyperlipidemia Evidence of right heart strain including elevated biomarkers, moderate RV dysfunction and mild RV dilatation. This is a high risk pulmonary embolism. He has been started on heparin drip. Extensive discussion of risk, benefits, alternatives with multiple questions answered. He accepts risk of TPA and wishes to proceed.. Heparin drip reduced to 1000 units/h during TPA infusion per MOPPETT methodology. TPA administered total 50 mg IV with 10 mg IV bolus and 40 mg over 2 hours. Resume heparin titration without bolus following TPA administration. Continue heparin drip. Will eventually transition to oral anticoagulants when stabilized. Cost of medication appears to be a primary concern for him. Hematology consult. Nasal cannula wean as tolerated He has been off antihypertensive and lipid medications. Nonsustained V. tach -episode occurred prior to TPA administration. He was administered amiodarone 150 mg IV. Pads and Zoll monitor in the room. He has had no further episodes so we will hold off on amiodarone drip at this point. FEN/RENAL: Normal creatinine. Monitor BMP. ID: Monitor for signs and symptoms of infection ENDO: Reported history of borderline diabetes. He has acute hyperglycemia Follow-up hemoglobin A1c Monitor bedside glucose AC at bedtime and administer low-dose insulin sliding scale as indicated. PROPH: Heparin drip will provide DVT and PE treatment as per above. Protonix 40 mg p.o. daily for stress ulcer prophylaxis. ACCESS: Peripheral IV providing adequate access at this time. Avoid arterial or central line sticks for 24 hours following TPA administration. Patient is critically ill with bilateral pulmonary emboli and large clot burden. Although he has a normal blood pressure this does appear hemodynamically significant with RV dysfunction, dyspnea, hypoxia, dysrhythmia. He is at high risk for further deterioration and . Critical care time 60 minutes exclusive of separately billable procedures. (2) DVT (deep venous thrombosis) Qualifiers: DVT location: lower extremity Affected thrombotic vein of extremity: femoral Chronicity: acute Laterality: left Qualified Code(s): I82.412 - Acute embolism and thrombosis of left femoral vein
--- NOTE | 2018-06-05 01:01 | ECHRPT ---
Indication: SHORTNESS OF BREATH CONCLUSIONS The left ventricular systolic function is hyperdynamic with an estimated ejection fraction in the ra nge of 65- 70%. Normal left ventricular size. Wall thickness is normal. No regional wall motion abnormalities are present. The right ventricle is mildly dilated. The right ventricular systolic function is moderately decreased. The aortic valve is not well visualized. Diffuse calcification of the aortic valve. There is mild tricuspid valve regurgitation. The estimated pulmonary arterial pressure is 48 mmHg. Trivial pulmonary valve regurgitation. BP: / HR: Rhythm: Sinus Technical Quality:Technically difficult study FINDINGS LEFT VENTRICLE The left ventricular systolic function is hyperdynamic with an estimated ejection fraction in the ra nge of 65- 70%. Normal left ventricular size. Wall thickness is normal. No regional wall motion abnormalities are present. RIGHT VENTRICLE The right ventricle is mildly dilated. The right ventricular systolic function is moderately decreased. LEFT ATRIUM The left atrial size is normal. RIGHT ATRIUM The right atrial size is normal. ATRIAL SEPTUM Normal atrial septal thickness without atrial level shunting by limited color doppler interrogation. AORTA The aortic root and proximal ascending aorta are normal in size on limited imaging. MITRAL VALVE Structurally normal mitral valve. No mitral valve stenosis or regurgitation. AORTIC VALVE The aortic valve is not well visualized. Diffuse calcification of the aortic valve but not stenotic. TRICUSPID VALVE Structurally normal tricuspid valve. There is mild tricuspid valve regurgitation. The estimated pulmonary arterial pressure is 48 mmHg which is elevated. PULMONARY VALVE Trivial pulmonary valve regurgitation. VESSELS The inferior vena cava is normal in size. PERICARDIUM No pericardial effusion. Brian Nassar MD (Electronically Signed) Final Date:05 June 2018 00:59
--- NOTE | 2018-06-05 03:13 | CT ---
EXAM DATE: 06/05/2018 2:21 AM EDT AGE/SEX: 58 years / Male INDICATIONS: Cephalgia; pulmonary emboli and DVT today. CLINICAL DATA: This is the patient's initial encounter. Patient reports that signs and symptoms have been present for 1 day and indicates a pain score of 6/10. MEDICAL/SURGICAL HISTORY: None. None. RADIATION DOSE: 42.43 CTDI (mGy) ; Patient motion COMPARISON: No prior exams available for comparison. TECHNIQUE: CT of the head without contrast. Using automated exposure control and adjustment of the mA and/or kV according to patient size, radiation dose was kept as low as reasonably achievable to ob tain optimal diagnostic quality images. DICOM format image data is available electronically for revi ew and comparison. FINDINGS: Cerebrum: The ventricles are normal for age. No evidence of midline shift, mass lesion, hemorrhage or acute infarction. No extraaxial fluid collections are seen. Posterior Fossa: The cerebellum and brainstem are intact. The 4th ventricle is midline. The cerebe llopontine angle is unremarkable. Extracranial: The visualized portion of the orbits is intact. Prominent rightward deviation of the b jeremy nasal septum. Skull: The calvaria is intact. No evidence of skull fracture. CONCLUSION: No acute intracranial findings. . Electronically signed by: Hunter Kay MD 06/05/2018 3:12 AM EDT
[2018-06-05 03:28] LABS: Hematocrit 44.3 % (39.0-51.0); Mean Corpuscular HGB Conc 33.8 % (32.0-36.0); Mean Corpuscular Hemoglobin 30.4 pg (27.0-34.0); Mean Corpuscular Volume 90.1 fL (80.0-100.0); Mean Platelet Volume 8.8 fL (7.0-11.0); Platelet Count 213 th/mm3 (150-450); Red Blood Count 4.92 mil/mm3 (4.50-5.90); Red Cell Distribution Width 12.4 % (11.6-17.2); White Blood Count 10.2 th/mm3 (4.0-11.0)
[2018-06-05 03:31] LABS: Bilirubin,Urine Negative (Negative); Clarity,Urine Clear (Clear); Color,Urine Yellow (Yellw/Straw); Glucose,Urine (UA) 500 or Greater mg/dL (Negative); Hyaline Casts,Urine 3 /lpf (0-3); Leukocyte Esterase,Urine Negative (Negative); Nitrite,Urine Negative (Negative); Specific Gravity,Urine 1.041 (1.002-1.035)
[2018-06-05 03:35] LABS: Amphetamine Screen,Urine Neg (Neg); Barbiturate Screen,Urine Neg (Neg); Cannabinoid Screen,Urine Neg (Neg); Cocaine Screen,Urine Neg (Neg)
[2018-06-05 03:37] LABS: Opiate Screen,Urine Neg (Neg)
[2018-06-05] MEDS ORDERED: Alteplase Inj 50 MG in Water for Inj, Sterile 50 ML IV.PUSH ONE (03:52)
[2018-06-05] MEDS ORDERED: Amiodarone Inj 150 MG in Dextrose 5% in Water Inj 97 ML IV.SIG ONE ×2 (04:00)
[2018-06-05] MEDS ORDERED: Chlorhexidine Gluconate 2% 1 Pack (2 Cloths) TOPICAL PRN (04:00)
[2018-06-05] MEDS ORDERED: Alteplase Inj 50 MG in Water for Inj, Sterile 50 ML IV.SIG ONE (04:15)
[2018-06-05] MEDS: Chlorhexidine Gluconate 2% 1 Pack (2 Cloths) TOPICAL SCH (04:49)
[2018-06-05 07:17] LABS: Hepatitis A IgM Antibody Nonreactive (Nonreactive)
[2018-06-05 07:28] LABS: Hepatitits B Surface Antigen Nonreactive (Nonreactive)
[2018-06-05] MEDS: Senna/Docusate Sodium 8.6/50 MG Tablet PO SCH ×2 (09:35→22:53)
[2018-06-05 10:25] LABS: INR 1.2 Ratio; Prothrombin Time 11.7 sec (9.8-11.6)
[2018-06-05] MEDS ORDERED: Dextrose 50% in Water 50 ML Vial IV.PUSH PRN (13:01)
--- NOTE | 2018-06-05 13:21 | MB ---
cc: Jax Gordon MD DATE: 06/05/2018 ATTENDING PHYSICIAN: Dr. Savanah Christopher REASON FOR CONSULTATION: Hematology concern. The patient with extensive pulmonary embolism and acute deep venous thrombosis. HISTORY OF PRESENT ILLNESS: The patient is a 58-year-old male with history of possible Factor V Leiden mutation; started not feeling well for the last 3 weeks. Said that he had been having body cramps. He also noted increased left lower extremity edema. At that time he stated that he has been more tired and weak. He has been sleeping more when he gets home from work. Yesterday morning, he started having chest pain and worsening shortness of breath. He also been having a nonproductive cough for several weeks. He came to the emergency room and was found to have extensive bilateral pulmonary embolism with signs of right heart strain. He was given thrombolytic therapy. When I saw him this morning, he is feeling better. His chest pain has resolved. Shortness of breath also has improved. The left lower extremity edema also has improved. He denies any fever or chills. He denies any night sweats or weight loss. He has no nausea or vomiting. He denies abdominal pain. He states that he has family history of factor V Leiden mutation, but he is not able to provide specific detail. His mother had history of blood clot, but no other thromboembolic event in the family. PAST MEDICAL HISTORY: 1. Hypertension. 2. Borderline diabetes. 3. Possible factor V Leiden mutation. PAST SURGICAL HISTORY: 1. Bone marrow harvest 2011. 2. Knee arthroscopic surgery. FAMILY HISTORY: Mother had blood clot. She was adopted. The patient has one sister of Hodgkin disease. He had 3 sons that are healthy; three other sisters are healthy; one brother is also healthy. He has a daughter. SOCIAL HISTORY: Quit cigars about 10 years ago. Drinks occasionally. ALLERGIES: AMOXICILLIN AND CODEINE. CURRENT MEDICATIONS: 1. Heparin. 2. Protonix. 3. Cyndee-Colace. REVIEW OF SYSTEMS: CONSTITUTIONAL: As above. EYES: Negative. ENT: Negative. CARDIOVASCULAR: As above. RESPIRATORY: As above. GASTROINTESTINAL: Negative. GENITOURINARY: Negative. MUSCULOSKELETAL: Negative. HEMATOLOGY: As above. ENDOCRINE: Negative. DERMATOLOGY: Negative. PSYCHIATRY: Negative. NEUROLOGIC: Negative. PHYSICAL EXAMINATION: VITAL SIGNS: Temperature 98.3, blood pressure 150/90, O2 saturation 96% on 5 liters nasal cannula. GENERAL: He is alert, oriented x3, no acute distress. HEENT: Atraumatic, normocephalic. Pupils are equal, round, reactive to light. Extraocular muscles intact. No scleral icterus. Oropharynx dry mucosa. No lesion, no thrush or mucositis. NECK: No thyromegaly. No palpable mass. LYMPHATIC: No palpable cervical, clavicular, axillary, or inguinal lymph nodes. HEART: Regular S1, S2. No murmur. LUNGS: Clear to auscultation anteriorly. ABDOMEN: Soft, nontender. Cannot palpate the spleen. EXTREMITIES: No cyanosis or clubbing. Left lower extremity, mild edema. No significant tenderness. SKIN: No rash or petechiae. NEUROLOGIC: Nonfocal. LABORATORY DATA: I did review his work during this admission. ASSESSMENT: 1. Extensive bilateral pulmonary embolism with left lower extremity deep venous thrombosis, which appeared to be unprovoked. The patient thinks that he may have factor V Leiden mutation, but he is not very sure. His mother had a blood clot, but no other siblings had history of thromboembolic event. The patient started feeling weak about 3 weeks ago. He also noted increased left lower extremity edema around that time. His symptoms progressively worsened over the last [address] angiogram showed bilateral large pulmonary embolism with multiple filling defects in the segmental branches of bilateral pulmonary arteries. Ultrasound showed a left lower extremity occlusive thrombus extending from mid thigh to popliteal vein. Echocardiogram showed signs of right heart strain. He was given thrombolytic therapy last night; he appeared to have good response. His symptoms have improved. The left lower extremity edema is significantly improved. Given his history of a possible hypercoagulable state, I would recommend repeating a hypercoagulable panel, but this could be done as outpatient; this is not the right time to do the test given his acute thrombosis and recently treated with thrombolytic therapy. I would recommend keeping him on the heparin drip for 2-3 more days. If he continued to improve, then he could be transitioned to oral anticoagulant. We discussed Coumadin versus NOAC anticoagulant. We discussed the pros and cons of each agent. The patient states that he has no insurance and it may be difficult to get NOAC. He also has no primary physician and it will be difficult to monitor his Coumadin level as outpatient. We will need a continuous pillowcase cutter to assist him to arrange for followup and try to get the drugs. 2. Hypertension, stable. RECOMMENDATIONS: 1. Extensive discussion with the patient as above. 2. Recommend continue heparin for 2-3 more days and then transition him to oral anticoagulation agent. Could consider NOAC like Eliquis if he is able to get the drug. 3. Consult continuous pillowcase cutter to assist with trying to get the drug and outpatient followup. Thank you Dr Christopher for asking me to see this patient. MD IRAM Cohen/clarisse , 12:42 PM , 01:04 PM MARK
[2018-06-05] MEDS: Insulin NovoLOG Aspart Correctional Sugar Inj SQ SCH ×3 (13:28→22:54)
[2018-06-05 16:15] LABS: Hemoglobin A1c 10.3 % (4.3-6.0)
[2018-06-05] MEDS: Heparin Drip 25,000 UNIT/250 ML BAG IV.CONT PRN (18:34)
--- NOTE | 2018-06-05 19:03 | US ---
EXAM DATE: 06/05/2018 12:00 AM EDT AGE/SEX: 58 years / Male INDICATIONS: Right abdominal pain. CLINICAL DATA: This is the patient's initial encounter. Patient reports that signs and symptoms have been present for 1 day and indicates a pain score of 0/10. MEDICAL/SURGICAL HISTORY: Hypertension. Factor 5 Leiden mutation.Hyperlipidemia. Pre diabetes. Arthroscopy. COMPARISON: No prior exams available for comparison. MEASUREMENTS: Liver:__ 24.0 cm. Common Bile Duct:__ 6mm. Right Kidney:__ 11.0 x 6.4 x 5.1 cm. FINDINGS: Liver: Homogeneously increased echotexture without focal lesion or ductal dilation. Portal Vein: The portal vein is not reliably identified and flow cannot be assessed. Common Duct: No intraluminal mass or stone visualized. Gallbladder: Demonstrates no wall thickening or pericholecystic fluid. No stones visualized. Pancreas: Not well visualized. Right Kidney: Normal echotexture and cortical thickness. No mass or hydronephrosis. Other: None. CONCLUSION: 1. No gallstones seen. 2. Hepatomegaly with diffuse increased echotexture but no focal lesions. Electronically signed by: Vijay Olmos MD 06/05/2018 7:01 PM EDT
--- NOTE | 2018-06-05 20:59 | ECG ---
Date Performed: 06/05/2018 Time Performed: 01:19:16 PTAGE: 58 years EKG: Sinus tachycardia. Poor R wave progression - probable normal variant Borderline ECG PREVIOUS TRACING : 06/04/2018 21.02 Since the previous tracing, no significant change noted DOCTOR: Ashok Almendarez Interpretating Date/Time 06/05/2018 20:59:12
--- NOTE | 2018-06-05 21:04 | ECG ---
Date Performed: 06/04/2018 Time Performed: 21:02:07 PTAGE: 58 years EKG: SINUS TACHYCARDIA LOW QRS VOLTAGE IN PRECORDIAL LEADS ABNORMAL RHYTHM ECG PREVIOUS TRACING : 06/04/2018 20.04 Since the previous tracing, no significant change noted DOCTOR: Ashok Almendarez Interpretating Date/Time 06/05/2018 21:02:38
[2018-06-06] MEDS: Melatonin 5 MG Tablet PO SCH ×2 (01:15→21:57)
[2018-06-06] MEDS: Chlorhexidine Gluconate 2% 1 Pack (2 Cloths) TOPICAL SCH (04:05)
[2018-06-06 04:08] LABS: Baso % (Auto) 0.4 % (0.0-2.0); Eos # (Auto) 0.2 th/mm3 (0.0-0.4); Eos % (Auto) 2.7 % (0.0-4.0); Hematocrit 43.8 % (39.0-51.0); Hemoglobin 15.2 gm/dL (13.0-17.0); Lymph # (Auto) 1.9 th/mm3 (1.0-4.8); Lymph % (Auto) 22.7 % (9.0-44.0); Mean Corpuscular HGB Conc 34.7 % (32.0-36.0); Mean Corpuscular Volume 89.6 fL (80.0-100.0); Mean Platelet Volume 8.7 fL (7.0-11.0); Mono # (Auto) 0.8 th/mm3 (0.0-0.9); Mono % (Auto) 9.5 % (0.0-8.0); Neut # (Auto) 5.5 th/mm3 (1.8-7.7); Neut % (Auto) 64.7 % (16.0-70.0); Platelet Count 175 th/mm3 (150-450); Red Blood Count 4.89 mil/mm3 (4.50-5.90); Red Cell Distribution Width 12.4 % (11.6-17.2); White Blood Count 8.5 th/mm3 (4.0-11.0)
[2018-06-06 04:44] LABS: Alanine Aminotransferase 69 U/L (12-78); Albumin 3.2 g/dL (3.4-5.0); Alkaline Phosphatase 124 U/L (45-117); Anion Gap 8 meq/L (5-15); Aspartate Aminotransferase 26 U/L (15-37); Blood Urea Nitrogen 14 mg/dL (7-18); Calcium 8.6 mg/dL (8.5-10.1); Chloride 102 meq/L (98-107); Glomerular Filtration Rate 60 mL/min (>89); Glucose,Random 234 mg/dL (74-106); Magnesium 1.8 mg/dL (1.5-2.5); Phosphorus 3.5 mg/dL (2.5-4.9); Potassium 3.8 meq/L (3.5-5.1); Sodium 137 meq/L (136-145); Total Protein 7.2 g/dL (6.4-8.2)
[2018-06-06] MEDS: Senna/Docusate Sodium 8.6/50 MG Tablet PO SCH ×2 (09:09→21:58)
[2018-06-06] MEDS: Insulin NovoLOG Aspart Correctional Sugar Inj SQ SCH ×4 (09:23→23:05)
--- NOTE | 2018-06-06 11:19 | P.PNCC ---
Subjective Subjective Remarks/Hospital Course: 58-year-old male who states that he has factor V Leiden deficiency, hypertension, prior tobacco abuse, hyperlipidemia, borderline diabetes presented to [facility] emergency department with acute onset of chest pain with workup revealing bilateral pulmonary embolism. He states that about 3 weeks ago he developed left leg pain and swelling which he attributed to a workout he had done at the gym. He has had intermittent dyspnea on exertion for about 2 days. At 7 am 06/04 he was riding in a van with his brother and developed sudden onset severe chest pain. He got out of the vehicle and walked into work (with difficulty) but was experiencing severe dyspnea. He felt presyncopal, diaphoretic and states he "looked in the mirror and appeared mayes" . He lowered himself into a chair and did not have syncope or head trauma. Workup in the ED included CTA chest which demonstrated bilateral pulmonary emboli including significant clot burden in the main pulmonary arteries as well as distal subsegments. Ultrasound demonstrated left femoral DVT extending to popliteal. He was normotensive but is tachycardic up to 120 with sinus rhythm. Troponin is elevated at 0.14 and BNP is also mildly elevated. Patient has received heparin bolus and was started on heparin drip. Critical care medicine was consulted and stat echo was ordered which demonstrated moderate RV dysfunction and mild dilatation. Patient denies prior issues with bleeding. He has never had a stroke or intracerebral hemorrhage, no recent surgery or trauma, intracerebral or intraspinous injuries. He has experienced posterior headache today. Obtain CT brain which was negative. No apparent comp or indication to TPA. After extensive discussion of risk and benefits with patient will proceed with TPA 50 mg over 2 hours for submassive PE. No known prior history of cancer. He has never had a colonoscopy and says that he stopped going to his primary care physician about 4 years ago. He has recently been working out more in an effort to improve his health. 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 He is sedentary at his job. He did travel by car to [place] and to [place] in mid to late March. He states he was previously tested positive for factor V Leiden mutation but has no prior history of venous thromboembolism and has not been on anticoagulation. 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 Quality of life including ability to maintain these activities is very important to him and therefore this influences his decision to proceed with TPA due to potential for reduced hospital stay, lower risk of recurrence, decreased pulmonary hypertension. He is aware of increased risk of bleeding which could include intracerebral hemorrhage. 06/06: Patient presented with unprovoked, submassive pulmonary embolism yesterday. He demonstrated right ventricular strain and dilation and severe shortness of breath. We elected to proceed with combination therapy, continuing his heparin drip and administering 50 mg of TPA intravenous. His breathing improved quite dramatically and he is quite comfortable in his respiratory pattern now. The heparin has been continued. He has a documented factor V Leiden deficiency and will need to be on anticoagulation for life. He is a little reluctant to do this but we are making progress in convincing him that he has a life-threatening illness. - Diagnosis (1) Bilateral pulmonary embolism (2) DVT (deep venous thrombosis) (3) Obesity (BMI 30.0-34.9) (4) Headache (5) RVF (right ventricular failure) (6) V-tach (7) HLD (hyperlipidemia) (8) HTN (hypertension) Objective Vital Signs / I&O: Vital Signs 06/05/18 11:00 06/05/18 12:00 06/05/18 16:00 Temperature 98.6 F 98.6 F Pulse Rate 92 H 74 86 Respiratory Rate 25 H 22 19 Blood Pressure 115/81 137/79 126/72 Pulse Oximetry 94 L 94 L 06/05/18 20:00 06/06/18 00:00 06/06/18 04:00 Temperature 97.8 F Pulse Rate 94 H 100 H 88 Respiratory Rate 33 H 26 H 22 Blood Pressure 164/112 H 108/59 L 116/72 Pulse Oximetry 93 L 94 L 98 Intake & Output 06/05/18 06/06/18 06/06/18 18:59 06:59 18:59 Intake Total 250 / 250 Balance 250 / 250 Weight 111.3 kg Intake: IV 250 / 250 Heparin/D5W 25,000 U/250 mL 25, 250 / 250 000 unit In 250 ml @ Per Protocol IV.CONT TITRATE PRN Rx #:[id number] Oral 0 / 0 Other: Date of Last Bowel Movement 06/06/18 Result Diagrams: 06/06/18 03:59 06/06/18 03:59 Objective Remarks: - Imaging Impressions Chest CTA 06/04/18 20:54 CONCLUSION: 1. Large bilateral pulmonary emboli. 2. 4 mm nodular density in the left upper lobe. Consider 12 month follow-up noncontrast chest CT. Chest X-Ray 06/04/18 20:54 CONCLUSION: No infiltrates seen. Elevated left hemidiaphragm. Venous Doppler Study 06/04/18 20:54 CONCLUSION: 1. Occlusive thrombus in the left lower extremity deep venous system from mid thigh to popliteal region. 2. No evidence of deep venous thrombosis in the right lower extremity. Exam Narrative: GENERAL: Alert, very pleasant and talkative male, overweight. SKIN: Warm and dry. HEAD: Atraumatic. Normocephalic. EYES: Pupils equal and round. No scleral icterus. No injection or drainage. ENT: No nasal bleeding or discharge. Mucous membranes pink and moist. NECK: Trachea midline. Airway widely patent CARDIOVASCULAR: Normal S1-S2, regular rate and rhythm. No murmurs rubs or gallops. No JVD. RESPIRATORY: Comfortable unlabored respiratory pattern, clear to auscultation. Breath sounds equal bilaterally. On nasal cannula GASTROINTESTINAL: Abdomen soft, non-tender, nondistended. Bowel sounds active MUSCULOSKELETAL: Extremities without clubbing, cyanosis. +LLE swelling persists. Compartments soft. NEUROLOGICAL: Awake and alert. Conversant, speech clear no obvious cranial nerve deficits. Motor grossly within normal limits. Five out of 5 muscle strength in the arms and legs. Oriented x3, distant memory normal. Assessment and Plan - Problem List (1) Bilateral pulmonary embolism Code(s): I26.99 - Other pulmonary embolism without acute cor pulmonale Status : Acute (2) DVT (deep venous thrombosis) Code(s): I82.409 - Acute embolism and thrombosis of unspecified deep veins of unspecified lower extremity Status: Acute (3) Obesity (BMI 30.0-34.9) Code(s): E66.9 - Obesity, unspecified Status: Chronic (4) Headache Code(s): R51 - Headache Status: Resolved (5) RVF (right ventricular failure) Code(s): I50.9 - Heart failure, unspecified Status: Acute (6) V-tach Code(s): I47.2 - Ventricular tachycardia Status: Acute (7) HLD (hyperlipidemia) Code(s): E78.5 - Hyperlipidemia, unspecified Status: Chronic (8) HTN (hypertension) Code(s): I10 - Essential (primary) hypertension Status: Chronic - Assessment and Plan Plan: NEURO: Headache, resolved CT brain negative No head trauma, neuro intact RESP/CV/HEME: Submassive bilateral pulmonary emboli Dyspnea Essential hypertension Hyperlipidemia Evidence of right heart strain including elevated biomarkers, moderate RV dysfunction and mild RV dilatation. This is a high risk pulmonary embolism. He has been started on heparin drip. Extensive discussion of risk, benefits, alternatives with multiple questions answered. He accepts risk of TPA and wishes to proceed.. Heparin drip reduced to 1000 units/h during TPA infusion per MOPPETT methodology. TPA administered total 50 mg IV with 10 mg IV bolus and 40 mg over 2 hours. Resume heparin titration without bolus following TPA administration. Continue heparin drip. Will eventually transition to oral anticoagulants when stabilized. Cost of medication appears to be a primary concern for him. Hematology consult. Nasal cannula wean as tolerated He has been off antihypertensive and lipid medications. Nonsustained V. tach -episode occurred prior to TPA administration. He was administered amiodarone 150 mg IV. Pads and Zoll monitor in the room. He has had no further episodes so we will hold off on amiodarone drip at this point. FEN/RENAL: Normal creatinine. Monitor BMP. ID: Monitor for signs and symptoms of infection ENDO: Reported history of borderline diabetes. He has acute hyperglycemia Follow-up hemoglobin A1c Monitor bedside glucose AC at bedtime and administer low-dose insulin sliding scale as indicated. PROPH: Heparin drip will provide DVT and PE treatment as per above. Protonix 40 mg p.o. daily for stress ulcer prophylaxis. ACCESS: Peripheral IV providing adequate access at this time. Avoid arterial or central line sticks for 24 hours following TPA administration. Overall impression: Patient arrived critically ill with bilateral pulmonary emboli and large clot burden. Although he had a normal blood pressure this was hemodynamically significant with RV dysfunction, dyspnea, hypoxia, dysrhythmia. He is at high risk for further deterioration and . He received 50% dose TPA with continuous heparin simultaneously and responded dramatically with improvement in respiratory status and cessation of chest pain. Remains critically ill and at high risk for sudden deterioration. Start Coumadin today, follow with pharmacy protocol, discontinue heparin when therapeutic. Arrange for diabetes education. Critical care 45 minutes (2) DVT (deep venous thrombosis) Qualifiers: DVT location: lower extremity Affected thrombotic vein of extremity: femoral Chronicity: acute Laterality: left Qualified Code(s): I82.412 - Acute embolism and thrombosis of left femoral vein
[2018-06-06] MEDS: Heparin Drip 25,000 UNIT/250 ML BAG IV.CONT PRN (12:39)
--- NOTE | 2018-06-06 15:23 | P.PNONC ---
Subjective Interval history: Patient sitting upright in bed, in no acute distress. Currently on 5 L O2 via nasal cannula. Patient describes his breathing as feeling as if he he is unable to fill enough of his lungs. Some dyspnea with talking. He denies any bleeding. Continues on heparin drip. Objective Vital Signs/Intake & Output: Vital Signs 06/05/18 16:00 06/05/18 20:00 06/06/18 00:00 Temperature 98.6 F 97.8 F Pulse Rate 86 94 H 100 H Respiratory Rate 19 33 H 26 H Blood Pressure 126/72 164/112 H 108/59 L Pulse Oximetry 94 L 93 L 94 L 06/06/18 04:00 06/06/18 08:00 06/06/18 12:00 Temperature Pulse Rate 88 88 91 H Respiratory Rate 22 22 25 H Blood Pressure 116/72 114/72 124/73 Pulse Oximetry 98 98 98 Intake & Output 06/05/18 06/06/18 06/06/18 18:59 06:59 18:59 Intake Total 250 / 250 250 / 250 Balance 250 / 250 250 / 250 Weight 111.3 kg Intake: IV 250 / 250 250 / 250 Heparin/D5W 25,000 U/250 mL 25, 250 / 250 250 / 250 000 unit In 250 ml @ Per Protocol IV.CONT TITRATE PRN Rx #:[id number] Oral 0 / 0 Other: Date of Last Bowel Movement 06/06/18 06/06/18 Result Diagrams: 06/06/18 03:59 06/06/18 03:59 Laboratory Results: Laboratory Results - last 24 hr 06/04/18 06/05/18 06/05/18 21:00 17:31 19:39 WBC RBC Hgb Hct MCV MCH MCHC RDW Plt Count MPV Neut % (Auto) Lymph % (Auto) Benton % (Auto) Eos % (Auto) Baso % (Auto) Neut # (Auto) Lymph # (Auto) Benton # (Auto) Eos # (Auto) Baso # (Auto) WBC Differential Differential Comment APTT 28.5 Sodium Potassium Chloride Carbon Dioxide Anion Gap BUN Creatinine Estimated GFR POC Glucose 201 H Random Glucose Hemoglobin A1c 10.3 H Calcium Phosphorus Magnesium Total Bilirubin AST ALT Alkaline Phosphatase Total Protein Albumin 06/05/18 06/06/18 06/06/18 22:49 03:59 03:59 WBC 8.5 RBC 4.89 Hgb 15.2 Hct 43.8 MCV 89.6 MCH 31.0 MCHC 34.7 RDW 12.4 Plt Count 175 MPV 8.7 Neut % (Auto) 64.7 Lymph % (Auto) 22.7 Benton % (Auto) 9.5 H Eos % (Auto) 2.7 Baso % (Auto) 0.4 Neut # (Auto) 5.5 Lymph # (Auto) 1.9 Benton # (Auto) 0.8 Eos # (Auto) 0.2 Baso # (Auto) 0.0 WBC Differential . Differential Comment Auto diff final APTT Sodium 137 Potassium 3.8 D Chloride 102 Carbon Dioxide 27.0 Anion Gap 8 BUN 14 Creatinine 1.24 Estimated GFR 60 L POC Glucose 303 H Random Glucose 234 H Hemoglobin A1c Calcium 8.6 Phosphorus 3.5 Magnesium 1.8 Total Bilirubin 0.6 AST 26 ALT 69 Alkaline Phosphatase 124 H Total Protein 7.2 D Albumin 3.2 L D 06/06/18 06/06/18 06/06/18 03:59 09:16 10:35 WBC RBC Hgb Hct MCV MCH MCHC RDW Plt Count MPV Neut % (Auto) Lymph % (Auto) Benton % (Auto) Eos % (Auto) Baso % (Auto) Neut # (Auto) Lymph # (Auto) Benton # (Auto) Eos # (Auto) Baso # (Auto) WBC Differential Differential Comment APTT 30.8 H 30.4 H Sodium Potassium Chloride Carbon Dioxide Anion Gap BUN Creatinine Estimated GFR POC Glucose 249 H Random Glucose Hemoglobin A1c Calcium Phosphorus Magnesium Total Bilirubin AST ALT Alkaline Phosphatase Total Protein Albumin 06/06/18 12:13 WBC RBC Hgb Hct MCV MCH MCHC RDW Plt Count MPV Neut % (Auto) Lymph % (Auto) Benton % (Auto) Eos % (Auto) Baso % (Auto) Neut # (Auto) Lymph # (Auto) Benton # (Auto) Eos # (Auto) Baso # (Auto) WBC Differential Differential Comment APTT Sodium Potassium Chloride Carbon Dioxide Anion Gap BUN Creatinine Estimated GFR POC Glucose 249 H Random Glucose Hemoglobin A1c Calcium Phosphorus Magnesium Total Bilirubin AST ALT Alkaline Phosphatase Total Protein Albumin Culture Results: Microbiology 06/05/18 23:05 Stool Occult Blood (IVETH) - Final Stool Hemoccult negative Imaging Studies: Impressions Liver Ultrasound 06/05/18 00:00 CONCLUSION: 1. No gallstones seen. 2. Hepatomegaly with diffuse increased echotexture but no focal lesions. Medications: Active Medications Generic Name Dose Route Start Last Admin Trade Name Marina PRN Reason Stop Dose Admin Chlorhexidine Gluconate 3 pack 06/05/18 04:00 06/06/18 04:05 Chlorhexidine 2% Cloth TOPICAL 06/10/18 03:59 Not Given DAILY@0400 ONEL Heparin Sodium/Dextrose 25,000 unit in 250 mls @ 0 mls/hr 06/04/18 21:58 12:39 Heparin/D5w 25,000 U/250 Ml IV.CONT 1,400 units/hr TITRATE PRN 14 mls/hr Per Protocol Administration Protocol Per Protocol Insulin Aspart 0 unit 06/05/18 12:00 06/06/18 12:32 Novolog Insulin Correctional Sugar Inj SQ 3 unit ACHS ONEL Administration Protocol Melatonin 5 mg 06/06/18 01:00 06/06/18 01:15 Melatonin PO 5 mg HS ONEL Administration Pantoprazole Sodium 40 mg 06/05/18 09:00 06/06/18 09:09 Protonix PO 40 mg DAILY ONEL Administration Senna/Docusate Sodium 1 tab 06/05/18 09:00 06/06/18 09:09 Cyndee-Colace PO 1 tab BID ONEL Administration Sodium Chloride 2 ml 06/05/18 09:00 06/06/18 09:10 Ns Flush IV.FLUSH 2 ml BID ONEL Administration Objective Remarks: GENERAL: Well-nourished, well-developed middle-aged male patient, sitting upright in bed, in no acute distress. SKIN: Warm and dry. HEAD: Normocephalic. EYES: No scleral icterus. No injection or drainage. NECK: Supple, trachea midline. CARDIOVASCULAR: Regular rate and rhythm without murmurs. RESPIRATORY: Breath sounds equal bilaterally. Non-labored at rest. O2 via NC 5L. +dyspneic with long sentences. GASTROINTESTINAL: Abdomen soft, non-tender, nondistended. EXTREMITIES: No cyanosis, or edema. MUSCULOSKELETAL: Adequate muscle tone. NEUROLOGICAL: No obvious focal deficit. Awake, alert, and oriented x3. PSYCHIATRIC: Appropriate mood and affect; insight and judgment normal. Assessment/Plan - Plan Mr. Lara is a 58-year-old gentleman who presented to the hospital with chest pain and shortness of breath. He was found to have an extensive bilateral pulmonary embolisms and a left lower extremity DVT. Patient had a positive family history of factor V Leiden mutation and he states that approximately 5 years ago his doctor discussed him being on anticoagulation as he also had this mutation, the patient elected aspirin only. Plan: 1. Pulmonary embolisms, status post TPA administration and currently on heparin drip. Recommend patient to stay on heparin drip for at least 2-3 more days and then transition to oral anticoagulation. No bleeding noted on exam, Steen catheter draining clear yellow urine. Continue to monitor for bleeding. 2. Discussed need for lifelong anticoagulation, patient verbalizes understanding. 3. Case management to assist the patient in obtaining assistance for anticoagulation and outpatient follow-up. 4. Continue supportive care. - Attending Statement The exam, history, and the medical decision-making described in the above note were completed with the assistance of the mid-level provider. I reviewed and agree with the findings presented. I attest that I had a [id number] encounter with the patient on the same day, and personally performed and documented my assessment and findings in the medical record.Patient still has dyspnea on exertion. Denies chest pain. LLE edema improved, still has calf soreness. No bleeding noted. Continue heparin for 2-3 more days and transition to NOAC if able to get the drug.
[2018-06-07] MEDS: Chlorhexidine Gluconate 2% 1 Pack (2 Cloths) TOPICAL SCH (03:35)
[2018-06-07 04:56] LABS: INR 1.3 Ratio
[2018-06-07] MEDS: Heparin Drip 25,000 UNIT/250 ML BAG IV.CONT PRN ×3 (05:52→21:18)
[2018-06-07] MEDS: Senna/Docusate Sodium 8.6/50 MG Tablet PO SCH ×2 (09:08→21:11)
--- NOTE | 2018-06-07 09:38 | P.PNIM ---
Subjective Interval history: Patient reports he is feeling much better, breathing more comfortable. He understand the need for lifelong anticoagulation. Physical Exam Vital signs: Vital Signs 06/06/18 12:00 06/06/18 16:00 06/06/18 19:55 Temperature 99.3 F Pulse Rate 91 H 88 Respiratory Rate 25 H 24 Blood Pressure 124/73 122/78 Pulse Oximetry 98 95 97 06/06/18 20:00 06/07/18 00:00 06/07/18 04:00 Temperature 97.7 F 97.6 F 98.1 F Pulse Rate 98 H 95 H 91 H Respiratory Rate 23 28 H 27 H Blood Pressure 134/76 130/82 121/76 Pulse Oximetry 94 L 93 L 97 06/07/18 08:00 Temperature 97.9 F Pulse Rate 86 Respiratory Rate 22 Blood Pressure 114/77 Pulse Oximetry 97 Intake & Output 06/06/18 06/07/18 06/07/18 18:59 06:59 18:59 Intake Total 250 / 250 730 / 730 Output Total 600 / 600 725 / 725 Balance -350 / -350 5 / 5 Weight 111.2 kg Intake: IV 250 / 250 250 / 250 Heparin/D5W 25,000 U/250 mL 25, 250 / 250 250 / 250 000 unit In 250 ml @ Per Protocol IV.CONT TITRATE PRN Rx #:[id number] Oral 480 / 480 Output: Urine 725 / 725 Urine Amount (Catheter) 600 / 600 Indwelling Urethral Catheter 600 / 600 Other: Date of Last Bowel Movement 06/06/18 06/06/18 06/06/18 # Bowel Movements 1 Narrative: GENERAL: This is a well-nourished, well-developed patient, in no apparent distress. CARDIOVASCULAR: Normal rate and regular rhythm without murmurs, gallops, or rubs. RESPIRATORY: Good respiratory efforts. Breath sounds equal and clear to auscultation bilaterally. GASTROINTESTINAL: Abdomen soft, non-tender, non-distended. Normal active bowel sounds MUSCULOSKELETAL: Extremities without cyanosis, or edema. NEURO: Alert & Oriented x4 to person, place, time, situation. Moves all ext x4 PSYCH: Appropriate mood and affect. - Urinary Catheter Management Indwelling Urethral Catheter Cath placed during this visit: yes Reason for continuing: Hourly intake/output Insertion date: 06/05/18 Insertion time: 03:53 Results - Labs CBC & Chem 7: 06/06/18 03:59 06/06/18 03:59 Laboratory Results - last 24 hr 06/06/18 06/06/18 06/06/18 10:35 12:13 16:18 PT INR APTT 30.4 H 29.6 POC Glucose 249 H 06/06/18 06/06/18 06/07/18 18:03 22:20 04:30 PT 13.0 H INR 1.3 APTT 30.6 H POC Glucose 266 H 06/07/18 04:30 PT INR APTT 34.2 H POC Glucose Assessment and Plan - Plan 58-year-old male initially admitted to the ICU in critical condition for bilateral pulmonary embolism with large clot burden. Patient underwent TPA administration and is on a heparin drip. His condition stabilized and improved. He is transferred to the hospitalist service. Submassive bilateral pulmonary emboli Dyspnea Essential hypertension Hyperlipidemia Evidence of right heart strain including elevated biomarkers, moderate RV dysfunction and mild RV dilatation. Patient is status post TPA administration along with heparin drip. Hematology/oncology following. Strong family history of factor V Leyden. Continue heparin drip per hematology with plan to transition to an OAC in a couple of days. Case management note noted. Patient will be given Eliquis and they will follow-up outpatient with [facility] where they can ensure he continues to get his medications. Wean off oxygen as tolerated He has been off antihypertensive and lipid medications. Nonsustained V. tach -episode occurred prior to TPA administration. He was administered amiodarone 150 mg IV. He has had no further episodes. Type 2 diabetes: Untreated. -Hemoglobin A1c of 10.2 - Monitor bedside glucose AC at bedtime and administer low-dose insulin sliding scale as indicated. -Start Levemir 10 units nightly PROPH: Heparin drip will provide DVT and PE treatment as per above. Protonix 40 mg p.o. daily for stress ulcer prophylaxis. Discharge Planning: Okay to transfer to [facility]. Anticipate discharge in 2-3 days.
[2018-06-07] MEDS: Insulin NovoLOG Aspart Correctional Sugar Inj SQ SCH ×4 (09:43→21:07)
--- NOTE | 2018-06-07 16:44 | P.PNONC ---
Subjective Interval history: Patient is feeling much better. He still had dyspnea on exertion but improved. He has some tightness in the left calf but the edema has significantly improved. He denies any bleeding. He has no chest pain. Objective Vital Signs/Intake & Output: Vital Signs 06/06/18 19:55 06/06/18 20:00 06/07/18 00:00 Temperature 97.7 F 97.6 F Pulse Rate 98 H 95 H Respiratory Rate 23 28 H Blood Pressure 134/76 130/82 Pulse Oximetry 97 94 L 93 L 06/07/18 04:00 06/07/18 08:00 06/07/18 12:00 Temperature 98.1 F 97.9 F 97.9 F Pulse Rate 91 H 86 93 H Respiratory Rate 27 H 22 24 Blood Pressure 121/76 114/77 120/78 Pulse Oximetry 97 97 98 Intake & Output 06/06/18 06/07/18 06/07/18 18:59 06:59 18:59 Intake Total 250 / 250 730 / 730 Output Total 600 / 600 725 / 725 Balance -350 / -350 5 / 5 Weight 111.2 kg Intake: IV 250 / 250 250 / 250 Heparin/D5W 25,000 U/250 mL 25, 250 / 250 250 / 250 000 unit In 250 ml @ Per Protocol IV.CONT TITRATE PRN Rx #:[id number] Oral 480 / 480 Output: Urine 725 / 725 Urine Amount (Catheter) 600 / 600 Indwelling Urethral Catheter 600 / 600 Other: Date of Last Bowel Movement 06/06/18 06/06/18 06/06/18 # Bowel Movements 1 Result Diagrams: 06/06/18 03:59 06/06/18 03:59 Laboratory Results: Laboratory Results - last 24 hr 06/06/18 06/06/18 06/06/18 16:18 18:03 22:20 PT INR APTT 29.6 30.6 H POC Glucose 266 H 06/07/18 06/07/18 06/07/18 04:30 04:30 09:42 PT 13.0 H INR 1.3 APTT 34.2 H POC Glucose 198 H 06/07/18 10:36 PT INR APTT 35.8 H POC Glucose Culture Results: Microbiology 06/05/18 23:05 Stool Occult Blood (IVETH) - Final Stool Hemoccult negative Medications: Active Medications Generic Name Dose Route Start Last Admin Trade Name Freq PRN Reason Stop Dose Admin Chlorhexidine Gluconate 3 pack 06/05/18 04:00 06/07/18 03:35 Chlorhexidine 2% Cloth TOPICAL 06/10/18 03:59 3 pack DAILY@0400 ONEL Administration Heparin Sodium/Dextrose 25,000 unit in 250 mls @ 0 mls/hr 06/04/18 21:58 11:08 Heparin/D5w 25,000 U/250 Ml IV.CONT 1,800 units/hr TITRATE PRN 18 mls/hr Per Protocol Titration Protocol Per Protocol Insulin Aspart 0 unit 06/05/18 12:00 06/07/18 09:43 Novolog Insulin Correctional Sugar Inj SQ 1 unit ACHS ONEL Administration Protocol Melatonin 5 mg 06/06/18 01:00 06/06/18 21:57 Melatonin PO 5 mg HS ONEL Administration Pantoprazole Sodium 40 mg 06/05/18 09:00 06/07/18 09:08 Protonix PO 40 mg DAILY ONEL Administration Senna/Docusate Sodium 1 tab 06/05/18 09:00 06/07/18 09:08 Cyndee-Colace PO Not Given BID ONEL Sodium Chloride 2 ml 06/05/18 09:00 06/07/18 09:07 Ns Flush IV.FLUSH 2 ml BID ONEL Administration Objective Remarks: GENERAL: Well-nourished, well-developed patient. SKIN: Warm and dry. HEAD: Normocephalic. EYES: No scleral icterus. No injection or drainage. NECK: Supple, trachea midline. No JVD or lymphadenopathy. LYMPHATIC: No adenopathy. CARDIOVASCULAR: Regular rate and rhythm without murmurs. RESPIRATORY: Breath sounds equal bilaterally. No accessory muscle use. GASTROINTESTINAL: Abdomen soft, non-tender, nondistended. EXTREMITIES: No cyanosis, or edema. Soreness in the left calf. MUSCULOSKELETAL: Adequate muscle tone. NEUROLOGICAL: No obvious focal deficit. Awake, alert, and oriented x3. PSYCHIATRIC: Appropriate mood and affect; insight and judgment normal. Assessment/Plan (1) Bilateral pulmonary embolism Code(s): I26.99 - Other pulmonary embolism without acute cor pulmonale Status : Acute (2) DVT (deep venous thrombosis) Code(s): I82.409 - Acute embolism and thrombosis of unspecified deep veins of unspecified lower extremity Status: Acute - Plan Mr. Lara is a 58-year-old gentleman who presented to the hospital with chest pain and shortness of breath. He was found to have an extensive bilateral pulmonary embolisms and a left lower extremity DVT. Patient had a positive family history of factor V Leiden mutation and he states that approximately 5 years ago his doctor discussed him being on anticoagulation as he also had this mutation, the patient elected aspirin only. Plan: 1. Pulmonary embolisms, status post TPA administration and currently on heparin drip. His chest pain has resolved. The shortness of breath also continue to improve. The left lower extremity edema has resolved but there is still some tightness in the left calf. Recommend continue heparin and consider transition him to Eliquis tomorrow if he remains stable. 2. Discussed need for lifelong anticoagulation, patient verbalizes understanding. 3. Case management to assist the patient in obtaining assistance for anticoagulation and outpatient follow-up. 4. Continue supportive care. (2) DVT (deep venous thrombosis) Qualifiers: DVT location: lower extremity Affected thrombotic vein of extremity: femoral Chronicity: acute Laterality: left Qualified Code(s): I82.412 - Acute embolism and thrombosis of left femoral vein
[2018-06-07] MEDS: Insulin Detemir Inj 1,000 UNIT/10 ML Vial SQ SCH (21:08)
[2018-06-07] MEDS: Melatonin 5 MG Tablet PO SCH (21:15)
[2018-06-08] MEDS: Chlorhexidine Gluconate 2% 1 Pack (2 Cloths) TOPICAL SCH (04:29)
[2018-06-08 04:58] LABS: Hematocrit 44.1 % (39.0-51.0); Hemoglobin 15.3 gm/dL (13.0-17.0); Mean Corpuscular HGB Conc 34.6 % (32.0-36.0); Mean Corpuscular Hemoglobin 30.7 pg (27.0-34.0); Mean Corpuscular Volume 88.8 fL (80.0-100.0); Platelet Count 222 th/mm3 (150-450); Red Blood Count 4.97 mil/mm3 (4.50-5.90); Red Cell Distribution Width 12.5 % (11.6-17.2); White Blood Count 9.5 th/mm3 (4.0-11.0)
[2018-06-08 05:23] LABS: Calcium 7.6 mg/dL (8.5-10.1); Carbon Dioxide 24.9 meq/L (21.0-32.0); Potassium 3.9 meq/L (3.5-5.1)
[2018-06-08 05:26] LABS: Chol/HDL Ratio 5.11 Ratio; HDL Cholesterol 25.6 mg/dL (40.0-60.0)
[2018-06-08 05:27] LABS: Activated Partial Thrombo Time 42.3 sec (24.3-30.1); INR 1.4 Ratio; Prothrombin Time 14.1 sec (9.8-11.6)
[2018-06-08] MEDS: Senna/Docusate Sodium 8.6/50 MG Tablet PO SCH ×3 (08:23→21:14)
[2018-06-08] MEDS: Insulin NovoLOG Aspart Correctional Sugar Inj SQ SCH ×4 (08:24→21:13)
[2018-06-08] MEDS: Heparin Drip 25,000 UNIT/250 ML BAG IV.CONT PRN (10:04)
--- NOTE | 2018-06-08 11:52 | P.PNONC ---
Subjective Interval history: Patient lying in bed, in no acute distress. He is currently on room air O2 sats 94%. He reports he has ambulated to the restroom and does feel winded with this. He continues to tire easily. He is able to speak in longer sentences without getting winded. Intermittent substernal pain, patient describes as "I can feel with the blood clot would be". He remains on heparin drip, denies any bleeding. Objective Vital Signs/Intake & Output: Vital Signs 06/07/18 12:00 06/07/18 16:00 06/07/18 20:00 Temperature 97.9 F 98.1 F 97.8 F Pulse Rate 93 H 94 H 95 H Respiratory Rate 24 20 19 Blood Pressure 120/78 137/93 H 142/85 H Pulse Oximetry 98 94 L 94 L 06/08/18 00:00 06/08/18 04:00 06/08/18 08:00 Temperature 98.7 F 98.6 F 98.3 F Pulse Rate 93 H 98 H 94 H Respiratory Rate 19 19 19 Blood Pressure 136/77 134/83 125/76 Pulse Oximetry 94 L 94 L 95 06/08/18 11:37 Temperature Pulse Rate Respiratory Rate Blood Pressure Pulse Oximetry 95 Intake & Output 06/07/18 06/08/18 06/08/18 18:59 06:59 18:59 Intake Total 1230 / 1230 730 / 730 250 / 250 Balance 1230 / 1230 730 / 730 250 / 250 Weight 113.1 kg Intake: IV 250 / 250 250 / 250 250 / 250 Heparin/D5W 25,000 U/250 mL 25, 250 / 250 250 / 250 250 / 250 000 unit In 250 ml @ Per Protocol IV.CONT TITRATE PRN Rx #:[id number] Oral 980 / 980 480 / 480 Other: # Voids 3 Date of Last Bowel Movement 06/06/18 06/07/18 Result Diagrams: 06/08/18 04:32 06/08/18 04:32 Laboratory Results: Laboratory Results - last 24 hr 06/07/18 06/07/18 06/07/18 16:45 16:47 21:06 WBC RBC Hgb Hct MCV MCH MCHC RDW Plt Count MPV PT INR APTT 37.2 H Sodium Potassium Chloride Carbon Dioxide Anion Gap BUN Creatinine Estimated GFR POC Glucose 215 H 221 H Random Glucose Calcium Triglycerides Cholesterol LDL Cholesterol, Calc HDL Cholesterol Cholesterol/HDL Ratio 06/07/18 06/08/18 06/08/18 22:10 04:32 04:32 WBC 9.5 RBC 4.97 Hgb 15.3 Hct 44.1 MCV 88.8 MCH 30.7 MCHC 34.6 RDW 12.5 Plt Count 222 MPV 9.0 PT INR APTT 36.6 H Sodium 137 Potassium 3.9 Chloride 102 Carbon Dioxide 24.9 Anion Gap 10 BUN 15 Creatinine 1.19 Estimated GFR 63 L POC Glucose Random Glucose 197 H Calcium 7.6 L Triglycerides 231 H Cholesterol 131 LDL Cholesterol, Calc 59 HDL Cholesterol 25.6 L Cholesterol/HDL Ratio 5.11 06/08/18 06/08/18 04:32 07:53 WBC RBC Hgb Hct MCV MCH MCHC RDW Plt Count MPV PT 14.1 H INR 1.4 APTT 42.3 H Sodium Potassium Chloride Carbon Dioxide Anion Gap BUN Creatinine Estimated GFR POC Glucose 184 H Random Glucose Calcium Triglycerides Cholesterol LDL Cholesterol, Calc HDL Cholesterol Cholesterol/HDL Ratio Culture Results: Microbiology 06/05/18 23:05 Stool Occult Blood (IVETH) - Final Stool Hemoccult negative Medications: Active Medications Generic Name Dose Route Start Last Admin Trade Name Freq PRN Reason Stop Dose Admin Chlorhexidine Gluconate 3 pack 06/05/18 04:00 06/08/18 04:29 Chlorhexidine 2% Cloth TOPICAL 06/10/18 03:59 Not Given DAILY@0400 ONEL Heparin Sodium/Dextrose 25,000 unit in 250 mls @ 0 mls/hr 06/04/18 21:58 10:04 Heparin/D5w 25,000 U/250 Ml IV.CONT 2,000 units/hr TITRATE PRN 20 mls/hr Per Protocol Administration Protocol Per Protocol Insulin Aspart 0 unit 06/05/18 12:00 06/08/18 08:24 Novolog Insulin Correctional Sugar Inj SQ 1 unit ACHS ONEL Administration Protocol Insulin Detemir 10 unit 06/07/18 21:00 06/07/18 21:08 Levemir Inj SQ 10 unit HS ONEL Administration Melatonin 5 mg 06/06/18 01:00 06/07/18 21:15 Melatonin PO 5 mg HS ONEL Administration Pantoprazole Sodium 40 mg 06/05/18 09:00 06/08/18 08:23 Protonix PO 40 mg DAILY ONEL Administration Senna/Docusate Sodium 1 tab 06/05/18 09:00 06/08/18 08:25 Cyndee-Colace PO Not Given BID ONEL Sodium Chloride 2 ml 06/05/18 09:00 06/08/18 08:23 Ns Flush IV.FLUSH 2 ml BID ONEL Administration Objective Remarks: GENERAL: Well-nourished, well-developed middle-aged male patient, lying in bed, in no acute distress. SKIN: Warm and dry. HEAD: Normocephalic. EYES: No scleral icterus. No injection or drainage. NECK: Supple, trachea midline. CARDIOVASCULAR: Regular rate and rhythm without murmurs. RESPIRATORY: Breath sounds equal bilaterally. Non-labored at rest. Currently on room air. GASTROINTESTINAL: Abdomen soft, non-tender, nondistended. EXTREMITIES: No cyanosis, or edema. MUSCULOSKELETAL: Adequate muscle tone. NEUROLOGICAL: No obvious focal deficit. Awake, alert, and oriented x3. PSYCHIATRIC: Appropriate mood and affect; insight and judgment normal. Assessment/Plan (1) Bilateral pulmonary embolism Code(s): I26.99 - Other pulmonary embolism without acute cor pulmonale Status : Acute (2) DVT (deep venous thrombosis) Code(s): I82.409 - Acute embolism and thrombosis of unspecified deep veins of unspecified lower extremity Status: Acute - Plan Mr. Lara is a 58-year-old gentleman who presented to the hospital with chest pain and shortness of breath. He was found to have an extensive bilateral pulmonary embolisms and a left lower extremity DVT. Patient had a positive family history of factor V Leiden mutation and he states that approximately 5 years ago his doctor discussed him being on anticoagulation as he also had this mutation, the patient elected aspirin only. Plan: 1. Pulmonary embolisms, status post TPA administration and currently on heparin drip. Intermittent chest pain. The shortness of breath continues to improve. Continues on heparin gtt, once stable will transition to Eliquis. 2. Patient reports he has obtained a primary care physician. 3. Patient will need lifelong anticoagulation and close outpatient follow-up. 4. Continue supportive care. - Attending Statement Minimally improved. He is still short of breath if he walks 10 feet. I do not consider him stable. In addition when one reviews the PTTs over the past several days he is not therapeutically anticoagulated in spite of the protocol. He has been difficult to anticoagulate with heparin. His sister who is present tells me that she has factor V Leiden mutation. In addition she gives an interesting history with other members have a prothrombin gene mutation. This raises the possibility he may have 2 mutations. These tests can be done during the course of anticoagulation as they are gene tests and not functional tests. I will order the prothrombin gene mutation test and the test for factor V Leiden. I have spoken with his hospitalist Dr. Gordon, and we both share the same concerns over the fact that it has been difficult to maintain a therapeutic PTT. The heparin will be stopped. 2 hours later he will begin Lovenox 1 mg/kg subcu every 12 hours. He will stay in the hospital until he is stable and then he will be transitioned to Eliquis 10 mg p.o. twice daily for 1 week to be followed by 5 mg p.o. twice daily. He is currently not stable. In addition I have ordered a factor V Leiden mutation and a prothrombin gene mutation. (2) DVT (deep venous thrombosis) Qualifiers: DVT location: lower extremity Affected thrombotic vein of extremity: femoral Chronicity: acute Laterality: left Qualified Code(s): I82.412 - Acute embolism and thrombosis of left femoral vein
--- NOTE | 2018-06-08 15:36 | P.PN ---
Subjective Interval history: The patient is at the margin of the bed still with some shortness of breath. No chest pain. Still with Tachycardia. Has some pain in his right leg with ambulation. However redness and. Edema has improved significantly. No cough. Discussed with Dr. Knapp hematology oncology as PTT is not therapeutic will discontinue heparin. Will start Lovenox 2 hours after heparin is discontinued. Plan discussed with the nurse who already stop heparin. Family also at bedside. All questions answered to best of my ability. Physical Exam Vital signs: Vital Signs 06/07/18 16:00 06/07/18 20:00 06/08/18 00:00 Temperature 98.1 F 97.8 F 98.7 F Pulse Rate 94 H 95 H 93 H Respiratory Rate 20 19 19 Blood Pressure 137/93 H 142/85 H 136/77 Pulse Oximetry 94 L 94 L 94 L 06/08/18 04:00 06/08/18 08:00 06/08/18 11:37 Temperature 98.6 F 98.3 F Pulse Rate 98 H 94 H Respiratory Rate 19 19 Blood Pressure 134/83 125/76 Pulse Oximetry 94 L 95 95 06/08/18 12:00 Temperature 98.2 F Pulse Rate 92 H Respiratory Rate 18 Blood Pressure 133/85 Pulse Oximetry 94 L Intake & Output 06/07/18 06/08/18 06/08/18 18:59 06:59 18:59 Intake Total 1230 / 1230 730 / 730 290 / 290 Balance 1230 / 1230 730 / 730 290 / 290 Weight 113.1 kg Intake: IV 250 / 250 250 / 250 290 / 290 Heparin/D5W 25,000 U/250 mL 25, 250 / 250 250 / 250 290 / 290 000 unit In 250 ml @ Per Protocol IV.CONT TITRATE PRN Rx #:[id number] Oral 980 / 980 480 / 480 Other: # Voids 3 Date of Last Bowel Movement 06/06/18 06/07/18 Narrative: GENERAL: This is a well-nourished, well-developed patient, in no apparent distress. CARDIOVASCULAR: Tachycardic. Normal rate and regular rhythm without murmurs, gallops, or rubs. RESPIRATORY: Good respiratory efforts. Breath sounds equal and clear to auscultation bilaterally. GASTROINTESTINAL: Abdomen soft, non-tender, non-distended. Normal active bowel sounds MUSCULOSKELETAL: Extremities without cyanosis, or edema. NEURO: Alert & Oriented x4 to person, place, time, situation. Moves all ext x4 PSYCH: Appropriate mood and affect. - Urinary Catheter Management Indwelling Urethral Catheter Cath placed during this visit: yes Reason for continuing: Hourly intake/output Insertion date: 06/05/18 Insertion time: 03:53 Results - Labs CBC & Chem 7: 06/08/18 04:32 06/08/18 04:32 Laboratory Results - last 24 hr 06/07/18 06/07/18 06/07/18 16:45 16:47 21:06 WBC RBC Hgb Hct MCV MCH MCHC RDW Plt Count MPV PT INR APTT 37.2 H Sodium Potassium Chloride Carbon Dioxide Anion Gap BUN Creatinine Estimated GFR POC Glucose 215 H 221 H Random Glucose Calcium Triglycerides Cholesterol LDL Cholesterol, Calc HDL Cholesterol Cholesterol/HDL Ratio 06/07/18 06/08/18 06/08/18 22:10 04:32 04:32 WBC 9.5 RBC 4.97 Hgb 15.3 Hct 44.1 MCV 88.8 MCH 30.7 MCHC 34.6 RDW 12.5 Plt Count 222 MPV 9.0 PT INR APTT 36.6 H Sodium 137 Potassium 3.9 Chloride 102 Carbon Dioxide 24.9 Anion Gap 10 BUN 15 Creatinine 1.19 Estimated GFR 63 L POC Glucose Random Glucose 197 H Calcium 7.6 L Triglycerides 231 H Cholesterol 131 LDL Cholesterol, Calc 59 HDL Cholesterol 25.6 L Cholesterol/HDL Ratio 5.11 06/08/18 06/08/18 06/08/18 04:32 07:53 11:45 WBC RBC Hgb Hct MCV MCH MCHC RDW Plt Count MPV PT 14.1 H INR 1.4 APTT 42.3 H 39.2 H Sodium Potassium Chloride Carbon Dioxide Anion Gap BUN Creatinine Estimated GFR POC Glucose 184 H Random Glucose Calcium Triglycerides Cholesterol LDL Cholesterol, Calc HDL Cholesterol Cholesterol/HDL Ratio 06/08/18 12:34 WBC RBC Hgb Hct MCV MCH MCHC RDW Plt Count MPV PT INR APTT Sodium Potassium Chloride Carbon Dioxide Anion Gap BUN Creatinine Estimated GFR POC Glucose 179 H Random Glucose Calcium Triglycerides Cholesterol LDL Cholesterol, Calc HDL Cholesterol Cholesterol/HDL Ratio Assessment and Plan - Plan 58-year-old male initially admitted to the ICU in critical condition for bilateral pulmonary embolism with large clot burden. Patient underwent TPA administration and is on a heparin drip. His condition stabilized and improved. He is transferred to the hospitalist service. Submassive bilateral pulmonary emboli Dyspnea Essential hypertension Hyperlipidemia Evidence of right heart strain including elevated biomarkers, moderate RV dysfunction and mild RV dilatation. Patient is status post TPA administration along with heparin drip. Hematology/oncology following. Strong family history of factor V Le[place]. We will discontinue heparin drip as PTT is subtherapeutic, will start Lovenox 110 mg subcu twice daily. Discussed with the patient, nurse and Dr. Knapp hematology oncology. When patient is stable, plan to transition to an OAC in a couple of days. Case management note noted. Patient will be given Eliquis and they will follow-up outpatient with [facility] where they can ensure he continues to get his medications. Wean off oxygen as tolerated He has been off antihypertensive and lipid medications. Nonsustained V. tach -episode occurred prior to TPA administration. He was administered amiodarone 150 mg IV. He has had no further episodes. Type 2 diabetes: Untreated. -Hemoglobin A1c of 10.2 - Monitor bedside glucose AC at bedtime and administer low-dose insulin sliding scale as indicated. -Start Levemir 10 units nightly PROPH: Heparin drip will provide DVT and PE treatment as per above. Protonix 40 mg p.o. daily for stress ulcer prophylaxis. Discharge Planning: Anticipate discharge in 2-3 days when stable. Plan to transition to Eliquis.
[2018-06-08] MEDS: Enoxaparin Inj 120 MG/0.8 ML Syringe SQ SCH (17:16)
[2018-06-08] MEDS: Insulin Detemir Inj 1,000 UNIT/10 ML Vial SQ SCH (21:12)
[2018-06-08] MEDS: Melatonin 5 MG Tablet PO SCH (21:12)
[2018-06-09] MEDS: Chlorhexidine Gluconate 2% 1 Pack (2 Cloths) TOPICAL SCH (04:00)
[2018-06-09 06:11] LABS: INR 1.2 Ratio; Prothrombin Time 12.3 sec (9.8-11.6)
[2018-06-09 06:19] LABS: Baso % (Auto) 0.5 % (0.0-2.0); Eos # (Auto) 0.2 th/mm3 (0.0-0.4); Hemoglobin 14.6 gm/dL (13.0-17.0); Lymph # (Auto) 1.8 th/mm3 (1.0-4.8); Mean Corpuscular Hemoglobin 30.6 pg (27.0-34.0); Mono # (Auto) 0.8 th/mm3 (0.0-0.9); Mono % (Auto) 8.4 % (0.0-8.0); Neut # (Auto) 6.7 th/mm3 (1.8-7.7); Neut % (Auto) 70.1 % (16.0-70.0); Platelet Count 230 th/mm3 (150-450); Red Blood Count 4.78 mil/mm3 (4.50-5.90); Red Cell Distribution Width 12.4 % (11.6-17.2); White Blood Count 9.6 th/mm3 (4.0-11.0)
[2018-06-09 06:25] LABS: Carbon Dioxide 24.7 meq/L (21.0-32.0); Potassium 3.6 meq/L (3.5-5.1)
[2018-06-09] MEDS: Enoxaparin Inj 120 MG/0.8 ML Syringe SQ SCH ×2 (06:48→17:39)
[2018-06-09] MEDS: Insulin NovoLOG Aspart Correctional Sugar Inj SQ SCH ×4 (09:14→21:34)
[2018-06-09] MEDS: Senna/Docusate Sodium 8.6/50 MG Tablet PO SCH ×2 (09:15→21:34)
--- NOTE | 2018-06-09 10:02 | P.PNONC ---
Subjective Interval history: Patient reports feeling much better today. He states he was able to ambulate the hallways last night and tolerated well. He is currently on room air and able to speak in much longer sentences without being dyspneic. He denies any bleeding. Objective Vital Signs/Intake & Output: Vital Signs 06/08/18 11:37 06/08/18 12:00 06/08/18 17:09 Temperature 98.2 F 98.3 F Pulse Rate 92 H 97 H Respiratory Rate 18 18 Blood Pressure 133/85 136/86 Pulse Oximetry 95 94 L 93 L 06/08/18 20:00 06/09/18 00:00 06/09/18 04:00 Temperature 97.9 F 97.7 F Pulse Rate 97 H 94 H 92 H Respiratory Rate 20 20 Blood Pressure 145/100 H 135/88 Pulse Oximetry 97 98 06/09/18 04:12 06/09/18 08:00 Temperature 98.7 F 97.8 F Pulse Rate 91 H 92 H Respiratory Rate 20 17 Blood Pressure 119/72 120/67 Pulse Oximetry 97 94 L Intake & Output 06/08/18 06/09/18 06/09/18 18:59 06:59 18:59 Intake Total 610 / 610 480 / 480 Balance 610 / 610 480 / 480 Weight 101.5 kg Intake: IV 290 / 290 Heparin/D5W 25,000 U/250 mL 25, 290 / 290 000 unit In 250 ml @ Per Protocol IV.CONT TITRATE PRN Rx #:[id number] Oral 320 / 320 480 / 480 Other: # Voids 1 2 Date of Last Bowel Movement 06/07/18 # Bowel Movements 1 Result Diagrams: 06/09/18 04:22 06/09/18 04:22 Laboratory Results: Laboratory Results - last 24 hr 06/08/18 06/08/18 06/08/18 11:45 12:34 16:40 WBC RBC Hgb Hct MCV MCH MCHC RDW Plt Count MPV Neut % (Auto) Lymph % (Auto) [place] % (Auto) Eos % (Auto) Baso % (Auto) Neut # (Auto) Lymph # (Auto) [place] # (Auto) Eos # (Auto) Baso # (Auto) WBC Differential Differential Comment PT INR APTT 39.2 H Sodium Potassium Chloride Carbon Dioxide Anion Gap BUN Creatinine Estimated GFR POC Glucose 179 H 256 H Random Glucose Calcium 06/08/18 06/09/18 06/09/18 21:05 04:22 04:22 WBC 9.6 RBC 4.78 Hgb 14.6 Hct 43.0 MCV 90.0 MCH 30.6 MCHC 34.0 RDW 12.4 Plt Count 230 MPV 9.0 Neut % (Auto) 70.1 H Lymph % (Auto) 19.0 [place] % (Auto) 8.4 H Eos % (Auto) 2.0 Baso % (Auto) 0.5 Neut # (Auto) 6.7 Lymph # (Auto) 1.8 [place] # (Auto) 0.8 Eos # (Auto) 0.2 Baso # (Auto) 0.0 WBC Differential . Differential Comment Auto diff final PT 12.3 H INR 1.2 APTT Sodium Potassium Chloride Carbon Dioxide Anion Gap BUN Creatinine Estimated GFR POC Glucose 208 H Random Glucose Calcium 06/09/18 04:22 WBC RBC Hgb Hct MCV MCH MCHC RDW Plt Count MPV Neut % (Auto) Lymph % (Auto) [place] % (Auto) Eos % (Auto) Baso % (Auto) Neut # (Auto) Lymph # (Auto) [place] # (Auto) Eos # (Auto) Baso # (Auto) WBC Differential Differential Comment PT INR APTT Sodium 137 Potassium 3.6 Chloride 101 Carbon Dioxide 24.7 Anion Gap 11 BUN 13 Creatinine 1.10 Estimated GFR 69 L POC Glucose Random Glucose 160 H Calcium 9.0 D Medications: Active Medications Generic Name Dose Route Start Last Admin Trade Name Freq PRN Reason Stop Dose Admin Chlorhexidine Gluconate 3 pack 06/05/18 04:00 06/09/18 04:00 Chlorhexidine 2% Cloth TOPICAL 06/10/18 03:59 Not Given DAILY@0400 ONEL Enoxaparin Sodium 110 mg 06/08/18 16:00 06/09/18 06:48 Lovenox Inj SQ 110 mg Q12H ONEL Administration Insulin Aspart 0 unit 06/05/18 12:00 06/09/18 09:14 Novolog Insulin Correctional Sugar Inj SQ 1 unit ACHS ONEL Administration Protocol Insulin Detemir 10 unit 06/07/18 21:00 06/08/18 21:12 Levemir Inj SQ 10 unit HS ONEL Administration Melatonin 5 mg 06/06/18 01:00 06/08/18 21:12 Melatonin PO 5 mg HS ONEL Administration Pantoprazole Sodium 40 mg 09/26/18 09:00 06/09/18 09:15 Protonix PO 40 mg DAILY ONEL Administration Senna/Docusate Sodium 1 tab 06/05/18 09:00 06/09/18 09:15 Cyndee-Colace PO Not Given BID ONEL Sodium Chloride 2 ml 06/05/18 09:00 06/09/18 09:17 Ns Flush IV.FLUSH 2 ml BID ONEL Administration Objective Remarks: GENERAL: Well-nourished, well-developed middle-aged male patient, lying in bed, in no acute distress. SKIN: Warm and dry. HEAD: Normocephalic. EYES: No scleral icterus. No injection or drainage. NECK: Supple, trachea midline. CARDIOVASCULAR: +S1/S2 without murmurs. RESPIRATORY: Breath sounds equal bilaterally. Non-labored at rest. Currently on room air. GASTROINTESTINAL: Abdomen soft, non-tender, nondistended. EXTREMITIES: No cyanosis, or edema. MUSCULOSKELETAL: Adequate muscle tone. NEUROLOGICAL: No obvious focal deficit. Awake, alert, and oriented x3. PSYCHIATRIC: Appropriate mood and affect; insight and judgment normal. Assessment/Plan (1) Bilateral pulmonary embolism Code(s): I26.99 - Other pulmonary embolism without acute cor pulmonale Status : Acute (2) DVT (deep venous thrombosis) Code(s): I82.409 - Acute embolism and thrombosis of unspecified deep veins of unspecified lower extremity Status: Acute - Plan Mr. Lara is a 58-year-old gentleman who presented to the hospital with chest pain and shortness of breath. He was found to have an extensive bilateral pulmonary embolisms and a left lower extremity DVT. Patient had a positive family history of factor V Leiden mutation and he states that approximately 5 years ago his doctor discussed him being on anticoagulation as he also had this mutation, the patient elected aspirin only. Plan: 1. Pulmonary embolisms, status post TPA administration. Patient was transitioned from heparin drip to Lovenox yesterday due to non-therapeutic APTT times. 2. Continue to monitor for bleeding. 3. Patient will need lifelong anticoagulation and close outpatient follow-up. 4. Continue supportive care. - Attending Statement The exam, history, and the medical decision-making described in the above note were completed with the assistance of the mid-level provider. I reviewed and agree with the findings presented. I attest that I had a [id number] encounter with the patient on the same day, and personally performed and documented my assessment and findings in the medical record. He is doing better and less short of breath but nevertheless even with mild exertion he is still short of breath. His lungs are clear. He is planning on walking the [place] today. I have asked him to have the nurse check his O2 saturation when [place] is [place] and to stop if it drops below 90%. Once he is more stable will convert to oral anticoagulant. In the meantime will continue Lovenox. (2) DVT (deep venous thrombosis) Qualifiers: DVT location: lower extremity Affected thrombotic vein of extremity: femoral Chronicity: acute Laterality: left Qualified Code(s): I82.412 - Acute embolism and thrombosis of left femoral vein
--- NOTE | 2018-06-09 15:27 | P.PN ---
Subjective Interval history: The patient is at the margin of the bed. Says he feels short of breath because he was ambulating to the bathroom and also he was speaking with the family. Feels tired. No chest pain. No nausea or vomiting no diarrhea constipation. He is able to ambulate. Physical Exam Vital signs: Vital Signs 06/08/18 17:09 06/08/18 20:00 06/09/18 00:00 Temperature 98.3 F 97.9 F 97.7 F Pulse Rate 97 H 97 H 94 H Respiratory Rate 18 20 20 Blood Pressure 136/86 145/100 H 135/88 Pulse Oximetry 93 L 97 98 06/09/18 04:00 06/09/18 04:12 06/09/18 08:00 Temperature 98.7 F 97.8 F Pulse Rate 92 H 91 H 88 Respiratory Rate 20 17 Blood Pressure 119/72 120/67 Pulse Oximetry 97 94 L 06/09/18 12:00 Temperature 96.4 F L Pulse Rate 90 Respiratory Rate 19 Blood Pressure 137/62 Pulse Oximetry 93 L Intake & Output 06/08/18 06/09/18 06/09/18 18:59 06:59 18:59 Intake Total 610 / 610 480 / 480 Balance 610 / 610 480 / 480 Weight 101.5 kg Intake: IV 290 / 290 Heparin/D5W 25,000 U/250 mL 25, 290 / 290 000 unit In 250 ml @ Per Protocol IV.CONT TITRATE PRN Rx #:[id number] Oral 320 / 320 480 / 480 Other: # Voids 1 2 Date of Last Bowel Movement 06/07/18 06/08/18 # Bowel Movements 1 Narrative: GENERAL: This is a well-nourished, well-developed patient, in no apparent distress. CARDIOVASCULAR: Tachycardic. Normal rate and regular rhythm without murmurs, gallops, or rubs. RESPIRATORY: Good respiratory efforts. Breath sounds equal and clear to auscultation bilaterally. GASTROINTESTINAL: Abdomen soft, non-tender, non-distended. Normal active bowel sounds MUSCULOSKELETAL: Extremities without cyanosis, or edema. NEURO: Alert & Oriented x4 to person, place, time, situation. Moves all ext x4 PSYCH: Appropriate mood and affect. - Urinary Catheter Management Indwelling Urethral Catheter Cath placed during this visit: yes Reason for continuing: Hourly intake/output Insertion date: 06/05/18 Insertion time: 03:53 Results - Labs CBC & Chem 7: 06/09/18 04:22 06/09/18 04:22 Laboratory Results - last 24 hr 06/08/18 06/08/18 06/09/18 16:40 21:05 04:22 WBC RBC Hgb Hct MCV MCH MCHC RDW Plt Count MPV Neut % (Auto) Lymph % (Auto) [place] % (Auto) Eos % (Auto) Baso % (Auto) Neut # (Auto) Lymph # (Auto) [place] # (Auto) Eos # (Auto) Baso # (Auto) WBC Differential Differential Comment PT 12.3 H INR 1.2 Sodium Potassium Chloride Carbon Dioxide Anion Gap BUN Creatinine Estimated GFR POC Glucose 256 H 208 H Random Glucose Calcium 06/09/18 06/09/18 06/09/18 04:22 04:22 12:06 WBC 9.6 RBC 4.78 Hgb 14.6 Hct 43.0 MCV 90.0 MCH 30.6 MCHC 34.0 RDW 12.4 Plt Count 230 MPV 9.0 Neut % (Auto) 70.1 H Lymph % (Auto) 19.0 Jun[place] % (Auto) 8.4 H Eos % (Auto) 2.0 Baso % (Auto) 0.5 Neut # (Auto) 6.7 Lymph # (Auto) 1.8 Jun[place] # (Auto) 0.8 Eos # (Auto) 0.2 Baso # (Auto) 0.0 WBC Differential . Differential Comment Auto diff final PT INR Sodium 137 Potassium 3.6 Chloride 101 Carbon Dioxide 24.7 Anion Gap 11 BUN 13 Creatinine 1.10 Estimated GFR 69 L POC Glucose 192 H Random Glucose 160 H Calcium 9.0 D Assessment and Plan - Plan 58-year-old male initially admitted to the ICU in critical condition for bilateral pulmonary embolism with large clot burden. Patient underwent TPA administration and is on a heparin drip. His condition stabilized and improved. He is transferred to the hospitalist service. Submassive bilateral pulmonary emboli Dyspnea Essential hypertension Hyperlipidemia Evidence of right heart strain including elevated biomarkers, moderate RV dysfunction and mild RV dilatation. Patient is status post TPA administration along with heparin drip. Hematology/oncology following. Strong family history of factor V Leyden. Check prothrombin time and factor V Leyden. We will discontinue heparin drip as PTT is subtherapeutic, will start Lovenox 110 mg subcu twice daily. Discussed with the patient, nurse and Dr. Knapp hematology oncology. When patient is stable, plan to transition to an OAC in a couple of days. Case management note noted. Patient will be given Eliquis and they will follow-up outpatient [facility] where they can ensure he continues to get his medications. Wean off oxygen as tolerated He has been off antihypertensive and lipid medications. Nonsustained V. tach -episode occurred prior to TPA administration. He was administered amiodarone 150 mg IV. He has had no further episodes. Type 2 diabetes: Untreated. -Hemoglobin A1c of 10.2 - Monitor bedside glucose AC at bedtime and administer low-dose insulin sliding scale as indicated. -Start Levemir 10 units nightly PROPH: Lovenox will provide DVT and PE treatment as per above. Protonix 40 mg p.o. daily for stress ulcer prophylaxis. Discharge Planning: Anticipate discharge in 2-3 days when stable. Plan to transition to Eliquis.
[2018-06-09] MEDS: Melatonin 5 MG Tablet PO SCH (21:25)
[2018-06-09] MEDS: Insulin Detemir Inj 1,000 UNIT/10 ML Vial SQ SCH (21:25)
[2018-06-10] MEDS: Enoxaparin Inj 120 MG/0.8 ML Syringe SQ SCH ×2 (04:16→17:41)
[2018-06-10 06:31] LABS: INR 1.2 Ratio; Prothrombin Time 12.2 sec (9.8-11.6)
[2018-06-10] MEDS: Insulin NovoLOG Aspart Correctional Sugar Inj SQ SCH ×4 (08:08→22:05)
[2018-06-10] MEDS: Senna/Docusate Sodium 8.6/50 MG Tablet PO SCH ×2 (08:09→21:54)
--- NOTE | 2018-06-10 08:57 | P.PN ---
Subjective Interval history: Pt seen and examined for f/u LLE DVT and bilateral PEs. Continues to be short of breath and reports every now and then he is able to take a good breath that gives him relief. He had a very difficult night and didn't sleep much. He states he is extremely tired but grateful for the care he is receiving. He has many questions about his prognosis, recovery, etc that were answered to the best of my abilities. He states he had some slight chest pain yesterday but nothing so far today. He ambulates the halls with PT but states he was very short of breath. He denies cough, fever, chills, abdominal pain, N/V. Tolerating PO. Physical Exam Vital signs: Vital Signs 06/09/18 12:00 06/09/18 16:00 06/09/18 20:04 Temperature 96.4 F L 97.6 F 97.9 F Pulse Rate 90 90 89 Respiratory Rate 19 17 21 Blood Pressure 137/62 129/87 142/80 H Pulse Oximetry 93 L 92 L 94 L 06/09/18 20:13 06/10/18 00:00 06/10/18 00:02 Temperature 97.9 F Pulse Rate 87 86 88 Respiratory Rate 20 Blood Pressure 117/83 Pulse Oximetry 93 L 06/10/18 04:07 06/10/18 08:00 Temperature 98.2 F 98.0 F Pulse Rate 86 84 Respiratory Rate 17 16 Blood Pressure 113/57 L 121/68 Pulse Oximetry 96 92 L Intake & Output 06/09/18 06/10/18 06/10/18 18:59 06:59 18:59 Intake Total 775 / 775 760 / 760 Balance 775 / 775 760 / 760 Weight 101.6 kg Intake: Oral 775 / 775 760 / 760 Other: # Voids 6 2 Date of Last Bowel Movement 06/08/18 # Bowel Movements 2 Narrative: GENERAL: WN, WD pleasant male resting in bed in NAD. SKIN: Warm and dry. HEENT: AT/NC. Pupils equal and round. MMM. HEART: RRR no m/r/g. LUNGS: CTAB without wheezes or crackles. ABDOMEN: +BS, soft, NT, ND. EXTREMITIES: LLE calf pain, warmth, and firmness. + Stephane sign on the left. NEURO: Awake and alert. PSYCH: Appropriate mood and affect. - Urinary Catheter Management Indwelling Urethral Catheter Cath placed during this visit: yes Reason for continuing: Hourly intake/output Insertion date: 06/05/18 Insertion time: 03:53 Results - Labs CBC & Chem 7: 06/09/18 04:22 06/09/18 04:22 Laboratory Results - last 24 hr 06/09/18 06/09/18 06/09/18 12:06 16:52 21:26 PT INR POC Glucose 192 H 198 H 172 H 06/10/18 06/10/18 05:39 08:08 PT 12.2 H INR 1.2 POC Glucose 148 H Assessment and Plan - Assessment (1) Bilateral pulmonary embolism Code(s): I26.99 - Other pulmonary embolism without acute cor pulmonale Status : Acute (2) DVT (deep venous thrombosis) Code(s): I82.409 - Acute embolism and thrombosis of unspecified deep veins of unspecified lower extremity Status: Acute - Plan 58 YOWM with history of factor V Leiden mutation, HTN, and HLD admitted on 06/04 for extensive pulmonary emboli and LLE DVT. He has a family history of factor V Leiden mutation have been reportedly tested in the past but had refused anticoagulation and opted for aspirin. 1. Bilateral pulmonary emboli CTA showing extensive large pulmonary emboli Evidence of right heart strain including mildly elevated troponins, moderate RV dysfunction and mild RV dilatation S/p TPA and heparin drip Transition to therapeutic Lovenox Heme/onc following Plan is to start OAC once stable, ancipitate in 1-2 days if patient continues to improve. CM arranging for follow-up with [facility] as well as a coupon for Eliquis We will need O2 walk test prior to discharge if still requiring oxygen Supplemental O2 PRN to maintain sats >92% 2. LLE DVT See plans above 3. Uncontrolled diabetes Reportedly had borderline diabetes in the past but A1c done in the hospital elevated at 10.3 Started on Levemir, increase to 12 units Sliding scale insulin with Accu-Cheks per protocol Lipid panel reveals elevated triglycerides at 231, LDL 59, TC 131, HLD 25. Pt has an 11.4% 10-yr ASCVD risk and guidelines recommend a high-intensity statin. Will start atorvastatin 40 mg daily Consult visual educator and dietitian since new onset 4. V. tach Episode occurred prior to TPA administration patient was administered amiodarone No further episodes 5. Factor V Leiden deficiency Heme/onc following Will need lifelong OAC 6. Lung nodule 4 mm nodular density in the left upper lobe found on CTA Patient with history of tobacco abuse. Denies unintentional weight loss, night sweats, etc. Recommend 12-month follow-up noncontrast chest CT Discussed this with patient who voiced understanding DVT prophylaxis: on Lovenox Code Status: FULL Discussed Condition With: Patient, correctional case manager Discharge Planning: Anticipate D/C in 1-2 days when cleared by heme/onc and transitioned to OAC (2) DVT (deep venous thrombosis) Qualifiers: DVT location: lower extremity Affected thrombotic vein of extremity: femoral Chronicity: acute Laterality: left Qualified Code(s): I82.412 - Acute embolism and thrombosis of left femoral vein
--- NOTE | 2018-06-10 12:33 | P.PNONC ---
Subjective Interval history: Patient lying in bed, sleeping on approach, awakens easily to voice. In no acute distress. Currently on O2 via nasal cannula at 1 L. He reports some episodes of dyspnea with exertion last evening, some muscle pain to left posterior leg and feeling tired today. Denies any bleeding. Objective Vital Signs/Intake & Output: Vital Signs 06/09/18 16:00 06/09/18 20:04 06/09/18 20:13 Temperature 97.6 F 97.9 F Pulse Rate 90 89 87 Respiratory Rate 17 21 Blood Pressure 129/87 142/80 H Pulse Oximetry 92 L 94 L 06/10/18 00:00 06/10/18 00:02 06/10/18 04:07 Temperature 97.9 F 98.2 F Pulse Rate 86 88 86 Respiratory Rate 20 17 Blood Pressure 117/83 113/57 L Pulse Oximetry 93 L 96 06/10/18 08:00 Temperature 98.0 F Pulse Rate 84 Respiratory Rate 16 Blood Pressure 121/68 Pulse Oximetry 92 L Intake & Output 06/09/18 06/10/18 06/10/18 18:59 06:59 18:59 Intake Total 775 / 775 760 / 760 Balance 775 / 775 760 / 760 Weight 101.6 kg Intake: Oral 775 / 775 760 / 760 Other: # Voids 6 2 Date of Last Bowel Movement 06/08/18 # Bowel Movements 2 Result Diagrams: 06/09/18 04:22 06/09/18 04:22 Laboratory Results: Laboratory Results - last 24 hr 06/09/18 06/09/18 06/10/18 16:52 21:26 05:39 PT 12.2 H INR 1.2 POC Glucose 198 H 172 H 06/10/18 06/10/18 08:08 12:23 PT INR POC Glucose 148 H 173 H Medications: Active Medications Generic Name Dose Route Start Last Admin Trade Name Freq PRN Reason Stop Dose Admin Enoxaparin Sodium 110 mg 06/08/18 16:00 06/10/18 04:16 Lovenox Inj SQ 110 mg Q12H ONEL Administration Insulin Aspart 0 unit 06/05/18 12:00 06/10/18 08:08 Novolog Insulin Correctional Sugar Inj SQ Not Given ACHS ONEL Protocol Melatonin 5 mg 06/06/18 01:00 06/09/18 21:25 Melatonin PO 5 mg HS ONEL Administration Pantoprazole Sodium 40 mg 06/05/18 09:00 06/10/18 08:10 Protonix PO 40 mg DAILY ONEL Administration Senna/Docusate Sodium 1 tab 06/05/18 09:00 06/10/18 08:09 Cyndee-Colace PO Not Given BID ONEL Sodium Chloride 2 ml 06/05/18 09:00 06/10/18 08:10 Ns Flush IV.FLUSH 2 ml BID ONEL Administration Objective Remarks: GENERAL: Well-nourished, well-developed middle-aged male patient, lying in bed, in no acute distress. SKIN: Warm and dry. HEAD: Normocephalic. EYES: No scleral icterus. No injection or drainage. NECK: Supple, trachea midline. CARDIOVASCULAR: +S1/S2 without murmurs. RESPIRATORY: Breath sounds equal bilaterally. Non-labored at rest. O2 via NC @ 2L. GASTROINTESTINAL: Abdomen soft, non-tender, nondistended. EXTREMITIES: No cyanosis, or edema. MUSCULOSKELETAL: Adequate muscle tone. NEUROLOGICAL: No obvious focal deficit. Awake, alert, and oriented x3. PSYCHIATRIC: Appropriate mood and affect; insight and judgment normal. Assessment/Plan (1) Bilateral pulmonary embolism Code(s): I26.99 - Other pulmonary embolism without acute cor pulmonale Status : Acute (2) DVT (deep venous thrombosis) Code(s): I82.409 - Acute embolism and thrombosis of unspecified deep veins of unspecified lower extremity Status: Acute - Plan Mr. Lara is a 58-year-old gentleman who presented to the hospital with chest pain and shortness of breath. He was found to have an extensive bilateral pulmonary embolisms and a left lower extremity DVT. Patient had a positive family history of factor V Leiden mutation and he states that approximately 5 years ago his doctor discussed him being on anticoagulation as he also had this mutation, the patient elected aspirin only. Plan: 1. Pulmonary embolisms, status post TPA administration. Patient was transitioned from heparin drip to Lovenox due to non-therapeutic APTT times. Once stable will transition to Eliquis. Per case management note, they have [facility], coupon for eliquis on chart and [facility] will continue to follow and assure pt can continue to get anticoagulation medication. 2. Continue to monitor for bleeding. 3. Patient will need lifelong anticoagulation and close outpatient follow-up. 4. Continue supportive care. - Attending Statement The exam, history, and the medical decision-making described in the above note were completed with the assistance of the mid-level provider. I reviewed and agree with the findings presented. I attest that I had a [id number] encounter with the patient on the same day, and personally performed and documented my assessment and findings in the medical record. Has dyspnea on exertion but slightly better. No LLE edema but still has tightness in the calf. Continue lovenox and plan to transition to Eliquis in 1-2 days if he continue to improve. (2) DVT (deep venous thrombosis) Qualifiers: DVT location: lower extremity Affected thrombotic vein of extremity: femoral Chronicity: acute Laterality: left Qualified Code(s): I82.412 - Acute embolism and thrombosis of left femoral vein
[2018-06-10] MEDS: Temazepam 15 MG Capsule PO PRN (21:54)
[2018-06-10] MEDS: Insulin Detemir Inj 1,000 UNIT/10 ML Vial SQ SCH (22:05)
[2018-06-11] MEDS: Enoxaparin Inj 120 MG/0.8 ML Syringe SQ SCH (05:21)
[2018-06-11] MEDS: Senna/Docusate Sodium 8.6/50 MG Tablet PO SCH ×2 (08:25→22:08)
[2018-06-11] MEDS: Insulin NovoLOG Aspart Correctional Sugar Inj SQ SCH ×4 (08:33→22:02)
[2018-06-11 08:34] LABS: INR 1.2 Ratio; Prothrombin Time 11.9 sec (9.8-11.6)
--- NOTE | 2018-06-11 10:25 | P.PN ---
Subjective Interval history: Follow-up visit for factor V Leiden, PE and left lower extremity DVT. Patient seen and examined resting in bed comfortably appears to be in no acute distress on room air. Patient reports that a good night sleep with sleep aid overnight. 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 Denies any fevers, chills, nausea, vomiting, diarrhea or chest pains. Does endorse some shortness of breath with exertion, passed walk test this morning. Return back to see patient around 1:40pm due to concerns over reports of headache and visual floaters. Patient seen and examined sitting up in recliner with physical therapist at bedside. He reports that he is having head pain that is "short of calling it hurting". Patient also reports that he is having floaters/spots when he ambulates, states that this began about 3 days ago. Denies any blurred vision or visual loss. Physical Exam Vital signs: Vital Signs 06/10/18 16:00 06/10/18 20:00 06/10/18 20:53 Temperature 97.8 F 98.1 F Pulse Rate 75 88 Respiratory Rate 18 18 Blood Pressure 147/73 H 131/89 Pulse Oximetry 96 95 95 Pulse Oximetry [Exertion on Room Air] Pulse Oximetry [Resting on Room Air] 06/10/18 23:53 06/11/18 04:00 06/11/18 07:47 Temperature 98.1 F 97.9 F 97.3 F L Pulse Rate 90 78 85 Respiratory Rate 18 17 18 Blood Pressure 138/89 111/65 151/87 H Pulse Oximetry 95 93 L 94 L Pulse Oximetry [Exertion on Room Air] Pulse Oximetry [Resting on Room Air] 06/11/18 08:33 06/11/18 09:14 Temperature Pulse Rate Respiratory Rate Blood Pressure Pulse Oximetry 93 L Pulse Oximetry [Exertion on Room Air] 94 L Pulse Oximetry [Resting on Room Air] 93 L Intake & Output 06/10/18 06/11/18 06/11/18 18:59 06:59 18:59 Intake Total 1200 / 1200 Balance 1200 / 1200 Weight 111.3 kg Intake: Oral 1200 / 1200 Other: # Voids 3 2 Date of Last Bowel Movement 06/10/18 06/10/18 Narrative: GENERAL: Well-developed obese male in no acute distress. SKIN: Warm and dry. HEENT: Head atraumatic, pupils equal round reactive, no nasal drainage, mucous membranes pink and moist. HEART: Regular rate and rhythm with no murmur noted. LUNGS: Breath sounds clear to auscultation in all mac. Respiratory status unlabored. ABDOMEN: +BS, soft, positive bowel sounds in all quadrants EXTREMITIES: Moves all extremities, ambulates without assistive devices. + Stephane sign on the left. NEURO: Awake and alert. PSYCH: Appropriate mood and affect. Patient is talkative. - Urinary Catheter Management Indwelling Urethral Catheter Cath placed during this visit: yes Reason for continuing: Hourly intake/output Insertion date: 06/05/18 Insertion time: 03:53 Results - Labs CBC & Chem 7: 06/09/18 04:22 06/09/18 04:22 Laboratory Results - last 24 hr 06/10/18 06/10/18 06/10/18 12:23 17:40 22:00 PT INR POC Glucose 173 H 197 H 212 H 06/11/18 06/11/18 06:48 07:54 PT 11.9 H INR 1.2 POC Glucose 158 H Assessment and Plan - Assessment (1) Bilateral pulmonary embolism Code(s): I26.99 - Other pulmonary embolism without acute cor pulmonale Status : Acute (2) DVT (deep venous thrombosis) Code(s): I82.409 - Acute embolism and thrombosis of unspecified deep veins of unspecified lower extremity Status: Acute - Plan 58 YOWM with history of factor V Leiden mutation, HTN, and HLD admitted on 06/04 for extensive pulmonary emboli and LLE DVT. He has a family history of factor V Leiden mutation have been reportedly tested in the past but had refused anticoagulation and opted for aspirin. 1. Bilateral pulmonary emboli CTA showing extensive large pulmonary emboli Evidence of right heart strain including mildly elevated troponins, moderate RV dysfunction and mild RV dilatation S/p TPA and heparin drip Transition to therapeutic Lovenox Heme/onc following. Patient has been switched over from subcu Lovenox to p.o. Eliquis. Hematology/oncology monitor overnight and possible discharge tomorrow. - [facility] Eli[facility] - Passed walk test not requiring O2. 2. LLE DVT See plans above 3. Uncontrolled diabetes Reportedly had borderline diabetes in the past but A1c done in the hospital elevated at 10.3 Started on Levemir, increase to 12 units Sliding scale insulin with Accu-Cheks per protocol Lipid panel reveals elevated triglycerides at 231, LDL 59, TC 131, HLD 25. Pt has an 11.4% 10-yr ASCVD risk and guidelines recommend a high-intensity statin. Will start atorvastatin 40 mg daily Consult developer programmer analyst and dietitian since new onset - BS better controlled 4. V. tach Episode occurred prior to TPA administration patient was administered amiodarone No further episodes 5. Factor V Leiden deficiency Heme/onc following Will need lifelong OAC 6. Lung nodule 4 mm nodular density in the left upper lobe found on CTA Patient with history of tobacco abuse. Denies unintentional weight loss, night sweats, etc. Recommend 12-month follow-up noncontrast chest CT Discussed this with patient who voiced understanding 5. Eye floaters Mild headache - Patient reports floaters are present when ambulating. Will check orthostatics. -Discussed with patient that he will need to follow-up with outpatient PCP or high risk ob. -PRN Tylenol for headache DVT prophylaxis: Lizbeth Discussed Condition With: Patient, RN, KAT Blankenship. Discharge Planning: Monitor overnight if no overt bleeding clear with hematology oncology and discharge home tomorrow. (2) DVT (deep venous thrombosis) Qualifiers: DVT location: lower extremity Affected thrombotic vein of extremity: femoral Chronicity: acute Laterality: left Qualified Code(s): I82.412 - Acute embolism and thrombosis of left femoral vein
--- NOTE | 2018-06-11 13:26 | P.PNONC ---
Subjective Interval history: Pt ambulating in room. Reports continued dyspnea with walking distance in hallways. He states he also sees "floaters" when he walks and he feels his b/p is going up at that time. He states that he sits and rests when this occurs. He believes he may have overdone the physical exertion today and does not plan on taking any more walks. Reports a slight tension headache, stating that his scalp hurts to touch and remains with posterior left leg pain. Objective Vital Signs/Intake & Output: Vital Signs 06/10/18 16:00 06/10/18 20:00 06/10/18 20:53 Temperature 97.8 F 98.1 F Pulse Rate 75 88 Respiratory Rate 18 18 Blood Pressure 147/73 H 131/89 Pulse Oximetry 96 95 95 Pulse Oximetry [Exertion on Room Air] Pulse Oximetry [Resting on Room Air] 06/10/18 23:53 06/11/18 04:00 06/11/18 07:47 Temperature 98.1 F 97.9 F 97.3 F L Pulse Rate 90 78 85 Respiratory Rate 18 17 18 Blood Pressure 138/89 111/65 151/87 H Pulse Oximetry 95 93 L 94 L Pulse Oximetry [Exertion on Room Air] Pulse Oximetry [Resting on Room Air] 06/11/18 08:33 06/11/18 09:14 06/11/18 12:00 Temperature 97.5 F L Pulse Rate 86 Respiratory Rate 16 Blood Pressure 140/66 Pulse Oximetry 93 L 93 L Pulse Oximetry [Exertion on Room Air] 94 L Pulse Oximetry [Resting on Room Air] 93 L Intake & Output 06/10/18 06/11/18 06/11/18 18:59 06:59 18:59 Intake Total 1200 / 1200 Balance 1200 / 1200 Weight 111.3 kg Intake: Oral 1200 / 1200 Other: # Voids 3 2 Date of Last Bowel Movement 06/10/18 06/10/18 Result Diagrams: 06/09/18 04:22 06/09/18 04:22 Laboratory Results: Laboratory Results - last 24 hr 06/10/18 06/10/18 06/11/18 17:40 22:00 06:48 PT 11.9 H INR 1.2 POC Glucose 197 H 212 H 06/11/18 06/11/18 07:54 11:02 PT INR POC Glucose 158 H 141 H Medications: Active Medications Generic Name Dose Route Start Last Admin Trade Name Freq PRN Reason Stop Dose Admin Atorvastatin Calcium 40 mg 06/10/18 21:00 06/10/18 21:54 Lipitor PO 40 mg HS ONEL Administration Enoxaparin Sodium 110 mg 06/08/18 16:00 06/11/18 05:21 Lovenox Inj SQ 110 mg Q12H ONEL Administration Insulin Aspart 0 unit 06/05/18 12:00 06/11/18 08:33 Novolog Insulin Correctional Sugar Inj SQ 1 unit ACHS ONEL Administration Protocol Insulin Detemir 12 unit 06/10/18 07:33 06/10/18 22:05 Levemir Inj SQ 12 unit HS ONEL Administration Melatonin 5 mg 06/06/18 01:00 06/09/18 21:25 Melatonin PO 5 mg HS ONEL Administration Pantoprazole Sodium 40 mg 06/05/18 09:00 06/11/18 08:25 Protonix PO Not Given DAILY ONEL Senna/Docusate Sodium 1 tab 06/05/18 09:00 06/11/18 08:25 Cyndee-Colace PO Not Given BID [facility] Sodium Chloride 2 ml 06/05/18 09:00 06/11/18 08:26 Ns Flush IV.FLUSH Not Given BID [facility] Temazepam 15 mg 06/10/18 16:56 06/10/18 21:54 Restoril PO 15 mg HS PRN Administration INSOMNIA Objective Remarks: GENERAL: Well-nourished, well-developed middle-aged male patient, ambulating in room, in no acute distress. SKIN: Warm and dry. HEAD: Normocephalic. EYES: No scleral icterus. No injection or drainage. NECK: Supple, trachea midline. CARDIOVASCULAR: +S1/S2 without murmurs. RESPIRATORY: Breath sounds equal bilaterally. Non-labored at rest. On room air. GASTROINTESTINAL: Abdomen soft, non-tender, nondistended. EXTREMITIES: No cyanosis, or edema. MUSCULOSKELETAL: Adequate muscle tone. NEUROLOGICAL: No obvious focal deficit. Awake, alert, and oriented x3. PSYCHIATRIC: Appropriate mood and affect; insight and judgment normal.. Assessment/Plan (1) Bilateral pulmonary embolism Code(s): I26.99 - Other pulmonary embolism without acute cor pulmonale Status : Acute (2) DVT (deep venous thrombosis) Code(s): I82.409 - Acute embolism and thrombosis of unspecified deep veins of unspecified lower extremity Status: Acute - Plan Mr. Lara is a 58-year-old gentleman who presented to the hospital with chest pain and shortness of breath. He was found to have an extensive bilateral pulmonary embolisms and a left lower extremity DVT. Patient had a positive family history of factor V Leiden mutation and he states that approximately 5 years ago his doctor discussed him being on anticoagulation as he also had this mutation, the patient elected aspirin only. Plan: 1. Pulmonary embolisms, status post TPA administration. Patient was transitioned from heparin drip to Lovenox due to non-therapeutic APTT times. Will transition to Eliquis 10mg BID today. He will take this dose for 7 days and then 5mg BID. 2. Continue to monitor for bleeding. 3. Patient will need lifelong anticoagulation and close outpatient follow-up. 4. Recommend to monitor overnight with transition to oral anticoagulant. - Attending Statement The exam, history, and the medical decision-making described in the above note were completed with the assistance of the mid-level provider. I reviewed and agree with the findings presented. I attest that I had a [id number] encounter with the patient on the same day, and personally performed and documented my assessment and findings in the medical record. Patient still has dyspnea on exertion but overall has improved. He also have left calf tightness. He was able to walk around the hallway but had to stop frequently. We will transition him to Eliquis today. Recommend monitoring him at least 1 more day to make sure he do well on Eliquis. (2) DVT (deep venous thrombosis) Qualifiers: DVT location: lower extremity Affected thrombotic vein of extremity: femoral Chronicity: acute Laterality: left Qualified Code(s): I82.412 - Acute embolism and thrombosis of left femoral vein
[2018-06-11] MEDS: Temazepam 15 MG Capsule PO PRN (22:00)
[2018-06-11] MEDS: Insulin Detemir Inj 1,000 UNIT/10 ML Vial SQ SCH (22:02)
[2018-06-12 07:16] LABS: INR 1.2 Ratio; Prothrombin Time 11.7 sec (9.8-11.6)
[2018-06-12] MEDS: Senna/Docusate Sodium 8.6/50 MG Tablet PO SCH ×2 (07:50→10:24)
--- NOTE | 2018-06-12 08:04 | P.DS ---
Date of admission: 06/04/18 23:17 Primary care physician: No Primary Care Physician Attending physician on discharge: Ben Mayer Anticipated date of discharge: 06/12/18 Brief History from admission: 58-year-old male who states that he has factor V Leiden deficiency, hypertension, prior tobacco abuse, hyperlipidemia, borderline diabetes presented to [facility] emergency department with acute onset of chest pain with workup revealing bilateral pulmonary embolism. He states that about 3 weeks ago he developed left leg pain and swelling which he attributed to a workout he had done at the gym. He has had intermittent dyspnea on exertion for about 2 days. At 7 am 06/04 he was riding in a van with his brother and developed sudden onset severe chest pain. He got out of the vehicle and walked into work (with difficulty) but was experiencing severe dyspnea. He felt presyncopal, diaphoretic and states he "looked in the mirror and appeared mayes" . He lowered himself into a chair and did not have syncope or head trauma. Workup in the ED included CTA chest which demonstrated bilateral pulmonary emboli including significant clot burden in the main pulmonary arteries as well as distal subsegments. Ultrasound demonstrated left femoral DVT extending to popliteal. He was normotensive but is tachycardic up to 120 with sinus rhythm. Troponin is elevated at 0.14 and BNP is also mildly elevated. Patient has received heparin bolus and was started on heparin drip. Critical care medicine was consulted and stat echo was ordered which demonstrated moderate RV dysfunction and mild dilatation. Patient denies prior issues with bleeding. He has never had a stroke or intracerebral hemorrhage, no recent surgery or trauma, intracerebral or intraspinous injuries. He has experienced posterior headache today. Obtain CT brain which was negative. No apparent comp or indication to TPA. After extensive discussion of risk and benefits with patient will proceed with TPA 50 mg over 2 hours for submassive PE. No known prior history of cancer. He has never had a colonoscopy and says that he stopped going to his primary care physician about 4 years ago. He has recently been working out more in an effort to improve his health. 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 He is sedentary at his job. He did travel by car to [place] and to [place] in mid to late March. He states he was previously tested positive for factor V Leiden mutation but has no prior history of venous thromboembolism and has not been on anticoagulation. 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 Quality of life including ability to maintain these activities is very important to him and therefore this influences his decision to proceed with TPA due to potential for reduced hospital stay, lower risk of recurrence, decreased pulmonary hypertension. He is aware of increased risk of bleeding which could include intracerebral hemorrhage. 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] #1 each insulin asp prt-insulin aspart [Novolog Mix 70-30 U-100 Insuln] 5 unit SUBCUT BID #15 ml insulin aspart U-100 [Novolog U-100 Insulin aspart] 0 unit SUBCUT ACHS #15 ml insulin syringe-needle U-100 [BD Insulin Syringe] #10 each lancets [BD Ultra Fine Lancets] #100 each DS: Summary Hospital Course: 58-year-old male with PMH significant for factor V Leiden deficiency, hypertension, prior tobacco abuse, hyperlipidemia, and borderline diabetes who presented to [facility] emergency department with acute onset of chest pain with workup revealing bilateral pulmonary embolism and LLE DVT on . There was evidence of right heart strain with mildly elevated troponin and moderate RV dysfunction and mild RV dilatation. Patient was treated in the ICU setting with IV TPA and heparin gtt. Patient was seen and evaluated by hem/ onc services and patient was transitioned to therapeutic dose of Lovenox. He was later transitioned to Eliquis. He received two oral doses with no noted bleeding. Hem/onc. has cleared patient for discharge. Patient was treated for new onset of DM and diabetic education provided. Patient is seen and examined sitting up in chair this morning with nurse at bedside in no acute distress. He reports he slept well and denies any acute concerns or complaints this morning. Does not report any shortness of breath, cough, nausea, vomiting or diarrhea. Discussed with patient 7-day course of Eliquis followed by lifelong course of Eliquis 5 mg twice a day. Discussed with patient switching over insulin to 70/30 as a cheaper alternative, case finisher to assist with 1 month refills on medications until he is seen by his PCP. Discussed with patient the importance of continuing to monitor blood pressures and ongoing log to review with his PCP. Patient was also instructed to set up an appointment with sewing teacher of his choice once discharged. - Time Spent with Patient Total time spent providing and/or coordinating discharge services: Less than 30 minutes - Quality: VTE Deep Vein Thrombosis/Pulmonary Embolism Present on Admission: Yes Exam Vital signs: Vital Signs 06/11/18 08:33 06/11/18 09:14 06/11/18 12:00 Temperature 97.5 F L Pulse Rate 86 Respiratory Rate 16 Blood Pressure 140/66 Pulse Oximetry 93 L 93 L Pulse Oximetry [Exertion on Room Air] 94 L Pulse Oximetry [Resting on Room Air] 93 L 06/11/18 15:39 06/11/18 20:00 06/11/18 22:00 Temperature 97.7 F 97.2 F L Pulse Rate 84 80 83 Respiratory Rate 18 18 18 Blood Pressure 124/80 170/103 H 159/74 H Pulse Oximetry 93 L 94 L 95 Pulse Oximetry [Exertion on Room Air] Pulse Oximetry [Resting on Room Air] 06/11/18 23:24 06/12/18 00:00 Temperature 97.7 F Pulse Rate 86 83 Respiratory Rate 18 18 Blood Pressure 184/79 H 122/69 Pulse Oximetry 94 L 93 L Pulse Oximetry [Exertion on Room Air] Pulse Oximetry [Resting on Room Air] Intake & Output 06/11/18 06/12/18 06/12/18 18:59 06:59 18:59 Intake Total 3000 / 3000 Balance 3000 / 3000 Weight 111.4 kg Intake: Oral 3000 / 3000 Other: # Voids 4 3 Date of Last Bowel Movement 06/10/18 06/10/18 # Bowel Movements 3 Narrative: GENERAL: Well-developed obese male in no acute distress. SKIN: Warm and dry. HEENT: Head atraumatic, pupils equal round reactive, no nasal drainage, mucous membranes pink and moist. HEART: Regular rate and rhythm with no murmur noted. LUNGS: Breath sounds clear to auscultation in all mac. Respiratory status unlabored. ABDOMEN: +BS, soft, positive bowel sounds in all quadrants EXTREMITIES: Moves all extremities, ambulates without assistive devices. NEURO: Awake and alert. PSYCH: Appropriate mood and affect. Patient is talkative. Results Procedures completed during hospitalization: None Labs on day of discharge: Labs from last 24 hours 06/12/18 06/12/18 06/11/18 07:53 06:26 22:01 PT 11.7 H INR 1.2 POC Glucose 158 H 158 H 06/11/18 06/11/18 06/11/18 16:47 11:02 06:48 PT 11.9 H INR 1.2 POC Glucose 170 H 141 H - Impressions ITS Impressions Chest CTA 06/04/18 20:54 CONCLUSION: 1. Large bilateral pulmonary emboli. 2. 4 mm nodular density in the left upper lobe. Consider 12 month follow-up noncontrast chest CT. Chest X-Ray 06/04/18 20:54 CONCLUSION: No infiltrates seen. Elevated left hemidiaphragm. Venous Doppler Study 06/04/18 20:54 CONCLUSION: 1. Occlusive thrombus in the left lower extremity deep venous system from mid thigh to popliteal region. 2. No evidence of deep venous thrombosis in the right lower extremity. Liver Ultrasound 06/05/18 00:00 CONCLUSION: 1. No gallstones seen. 2. Hepatomegaly with diffuse increased echotexture but no focal lesions. Head CT 06/05/18 02:19 CONCLUSION: No acute intracranial findings. . Discharge Plan - Discharge Disposition Patient Disposition: 01 Discharge Home - Discharge Condition Condition: Good - Discharge Order Discharge Orders: Discharge Order (Routine); Ordered 06/12/18 Ordered By: Rm Strong - Discharge Details Anticipated Discharge Date: 06/12/18 - Physicians Team Primary Care Provider: Primary Care Rand Antonio Attending Provider: Ben Mayer Other Providers: Jax Gordon MD
[2018-06-12 09:46] VITALS: BP 140/94; PULSE 84; RESP 17; TEMP 97.4; O2SAT 95
[2018-06-12] MEDS: Insulin NovoLOG Aspart Correctional Sugar Inj SQ SCH (10:23)
--- NOTE | 2018-06-12 16:05 | P.PNONC ---
Subjective Interval history: Patient started Eliquis yesterday evening. He denies any chest pain. He still has dyspnea on exertion. Symptoms have improved. He was able to ambulate around the hallway yesterday. He has no bleeding or bruising. The left leg soreness is slightly better. He is eager to go home.(Late entry.) Objective Vital Signs/Intake & Output: Vital Signs 06/11/18 20:00 06/11/18 22:00 06/11/18 23:24 Temperature 97.2 F L Pulse Rate 80 83 86 Respiratory Rate 18 18 18 Blood Pressure 170/103 H 159/74 H 184/79 H Pulse Oximetry 94 L 95 94 L 06/12/18 00:00 06/12/18 08:00 Temperature 97.7 F 97.4 F L Pulse Rate 83 84 Respiratory Rate 18 17 Blood Pressure 122/69 140/94 H Pulse Oximetry 93 L 95 Intake & Output 06/11/18 06/12/18 06/12/18 18:59 06:59 18:59 Intake Total 3000 / 3000 Balance 3000 / 3000 Weight 111.4 kg Intake: Oral 3000 / 3000 Other: # Voids 4 3 Date of Last Bowel Movement 06/10/18 06/10/18 06/10/18 # Bowel Movements 3 Result Diagrams: 06/09/18 04:22 06/09/18 04:22 Laboratory Results: Laboratory Results - last 24 hr 06/11/18 06/11/18 06/12/18 16:47 22:01 06:26 PT 11.7 H INR 1.2 POC Glucose 170 H 158 H 06/12/18 07:53 PT INR POC Glucose 158 H Medications: Active Medications Generic Name Dose Route Start Last Admin Trade Name Freq PRN Reason Stop Dose Admin Acetaminophen 650 mg 06/05/18 00:12 06/11/18 13:58 Tylenol PO 650 mg Q6H PRN Administration PAIN 1-10 AND/OR FEVER >101F Apixaban 10 mg 06/11/18 18:00 06/12/18 10:23 Eliquis PO Not Given BID ONEL Atorvastatin Calcium 40 mg 06/10/18 21:00 06/11/18 21:59 Lipitor PO 40 mg HS ONEL Administration Insulin Aspart 0 unit 06/05/18 12:00 06/12/18 10:23 Novolog Insulin Correctional Sugar Inj SQ Not Given ACHS [facility] Protocol Insulin Detemir 12 unit 06/10/18 07:33 06/11/18 22:02 Levemir Inj SQ 12 unit HS ONEL Administration Melatonin 5 mg 06/06/18 01:00 06/09/18 21:25 Melatonin PO 5 mg HS ONEL Administration Pantoprazole Sodium 40 mg 06/05/18 09:00 06/12/18 10:24 Protonix PO Not Given DAILY ONEL Senna/Docusate Sodium 1 tab 06/05/18 09:00 06/12/18 10:24 Cyndee-Colace PO Not Given BID [facility] Sodium Chloride 2 ml 06/05/18 09:00 06/12/18 10:24 Ns Flush IV.FLUSH Not Given BID [facility] Temazepam 15 mg 06/10/18 16:56 06/11/18 22:00 Restoril PO 15 mg HS PRN Administration INSOMNIA Objective Remarks: GENERAL: Well-nourished, well-developed patient. SKIN: Warm and dry. HEAD: Normocephalic. EYES: No scleral icterus. No injection or drainage. NECK: Supple, trachea midline. No JVD or lymphadenopathy. LYMPHATIC: No adenopathy. CARDIOVASCULAR: Regular rate and rhythm without murmurs. RESPIRATORY: Breath sounds equal bilaterally. No accessory muscle use. GASTROINTESTINAL: Abdomen soft, non-tender, nondistended. EXTREMITIES: No cyanosis, or edema. Slight soreness in left calf. No significant edema. MUSCULOSKELETAL: Adequate muscle tone. NEUROLOGICAL: No obvious focal deficit. Awake, alert, and oriented x3. PSYCHIATRIC: Appropriate mood and affect; insight and judgment normal. Assessment/Plan (1) Bilateral pulmonary embolism Code(s): I26.99 - Other pulmonary embolism without acute cor pulmonale Status : Acute (2) DVT (deep venous thrombosis) Code(s): I82.409 - Acute embolism and thrombosis of unspecified deep veins of unspecified lower extremity Status: Acute - Plan Mr. Lara is a 58-year-old gentleman who presented to the hospital with chest pain and shortness of breath. He was found to have an extensive bilateral pulmonary embolisms and a left lower extremity DVT. Patient had a positive family history of factor V Leiden mutation and he states that approximately 5 years ago his doctor discussed him being on anticoagulation as he also had this mutation, the patient elected aspirin only. Plan: 1. Pulmonary embolisms, status post TPA administration. Patient was transitioned from heparin drip to Lovenox due to non-therapeutic APTT times. He was transitioned to Eliquis June 11, 2018. He is tolerating well. His shortness of breath has continued to improve. Left lower extremity edema has resolved. He will continue Eliquis 10 mg twice a day for 7 days and then switch to 5 mg twice a day. He has follow[facility] at [facility]. 2. Continue to monitor for bleeding. 3. Patient will need lifelong anticoagulation and close outpatient follow-up. (2) DVT (deep venous thrombosis) Qualifiers: DVT location: lower extremity Affected thrombotic vein of extremity: femoral Chronicity: acute Laterality: left Qualified Code(s): I82.412 - Acute embolism and thrombosis of left femoral vein
[2018-06-13 18:31] LABS: Factor V Leiden Mutation Heterozygous (Negative)
== END 2018-06-12 11:14 | disposition home or self-care (01) ==
LOC: NEPE 19:57 → NEDA 23:17 → N03 06-05 01:10 → N07 06-07 18:56
PROVIDERS: ADMIT Hospitalist; ATTEND Hospitalist